=== PATIENT | female | born 1945 | race Caucasian/White ===

== ENCOUNTER → 2018-06-26 17:39 | Outpatient (CLI) | payer MEDICARE ==
[2012-01-13 10:23] VITALS: BMI 23.9
== END | disposition home or self-care (01) ==
LOC: D.LABREF 17:39
DX: M17.11 Unilateral primary osteoarthritis, right knee (principal); Z11.8 Encounter for screening for other infectious and parasitic diseases

== ENCOUNTER 2018-07-23 08:50 | Inpatient (IN) | payer MEDICARE ==
[~2018-07-23] VITALS: Ht 160 cm; Wt 60.0 kg
[2018-07-24] MEDS ORDERED: LISINOPRIL5 MG PO (16:55)
[2018-07-24] MEDS ORDERED: FEMARA2.5 MG PO (16:56)
[2018-07-24] MEDS ORDERED: COREG6.25 MG PO (16:56)
[2018-07-24] MEDS ORDERED: BUSPAR10 MG PO (16:56)
[2018-07-24] MEDS ORDERED: OMEPRAZOLE40 MG PO (16:57)
[2018-07-24] MEDS ORDERED: LIPITOR10 MG PO (16:57)
[2018-07-24] MEDS ORDERED: RESTORIL15 MG PO (16:57)
[2018-07-24] MEDS ORDERED: WELLBUTRIN XL150 M1 PO (16:58)
[2018-07-24] MEDS ORDERED: MOBIC7.5 MG PO (16:58)
[2018-07-24] MEDS ORDERED: CO Q-10200 MG PO (16:59)
[2018-07-24] MEDS ORDERED: ASPIRIN EC81 M1 PO (16:59)
[2018-07-24] MEDS ORDERED: FOLIC ACID0.8 MG PO (16:59)
[2018-07-24] MEDS ORDERED: FERROUS SULFAT325 MG PO (16:59)
[2018-07-24] MEDS ORDERED: MULTI-DAY VITAM1 TAB PO (16:59)
[2018-07-24] MEDS ORDERED: VITAMIN D3400 UNI1 PO (16:59)
[2018-07-24] MEDS ORDERED: DULCOLAX STOOL100 MG PO (17:00)
[2018-07-24] MEDS ORDERED: MIRALAX17 GM PO (17:01)
[2018-07-24] MEDS ORDERED: SUPER B COMPLEX PO (17:01)
[2018-07-24] MEDS ORDERED: FIBER GUMMIES PO (17:01)
[2018-07-24] MEDS ORDERED: CALCIUM CHEWS PO (17:01)
[2018-07-25 11:32] LABS: BASOPHILS 0.6 % (0-2); EOSINOPHILS 4.1 % (0-7); HEMATOCRIT 41.2 % (36.0-48.0); HEMOGLOBIN 13.6 g/dL (12-16); IMMATURE GRANULOCYTES 0.2 % (0-5); LYMPHOCYTES 27.6 % (15-50); MCH 31.4 pg (26.0-34.0); MCV 95.2 fL (80.0-100.0); MEAN PLATELET VOLUME 9.6 fL (7.4-10.4); MONOCYTES 6.8 % (2-11); NEUTROPHILS 60.7 % (40-80); PLATELET COUNT 199 10x3/uL (130-400); RBC 4.33 10x6/uL (4.00-5.40); WBC 4.7 10x3/uL (4.8-10.8)
[2018-07-25 11:38] LABS: APPEARANCE CLEAR (CLEAR); BILIRUBIN NEGATIVE (NEGATIVE); COLOR STRAW (YELLOW); EPITHELIAL CELLS OCC /hpf (0-5); GLUCOSE NEGATIVE (NEGATIVE); KETONE NEGATIVE (NEGATIVE); NITRITE NEGATIVE (NEGATIVE); PROTEIN NEGATIVE (NEGATIVE); RED CELLS - URINE NONE SEEN /hpf (0-5); SPECIFIC GRAVITY 1.015 (1.005-1.020); UROBILINOGEN NORMAL (NORMAL); WHITE CELLS - URINE RARE /hpf (0-5)
[2018-07-25 11:47] LABS: INR 0.96 (0.85-1.17); PROTIME 12.3 SECONDS (11.6-15.0)
[2018-07-25 11:49] LABS: CALC OSMOLALITY 278 mosm/kg (275-300); CALCIUM 8.8 mg/dL (8.5-10.1); CARBON DIOXIDE 24.7 mmol/L (21.0-32.0); CHLORIDE - SERUM 102 mmol/L (98-107); CREATININE - SERUM 0.8 mg/dL (0.6-1.3); GLUCOSE 93 mg/dL (74-106); SODIUM 138 mmol/L (136-145); UREA NITROGEN 20 mg/dL (7-18); eGFR NON AFRICAN AMERICAN 75 mL/min (90-120)
[2018-08-31 10:46] LABS: BASOPHILS 0.6 % (0-2); HEMATOCRIT 42.4 % (36.0-48.0); IMMATURE GRANULOCYTES 0.2 % (0-5); LYMPHOCYTES 22.3 % (15-50); MCH 31.3 pg (26.0-34.0); MCV 94.6 fL (80.0-100.0); MEAN PLATELET VOLUME 9.7 fL (7.4-10.4); MONOCYTES 6.3 % (2-11); NEUTROPHILS 68.6 % (40-80); PLATELET COUNT 198 10x3/uL (130-400); RBC 4.48 10x6/uL (4.00-5.40); RDW 13.2 % (11.5-14.5); WBC 5.1 10x3/uL (4.8-10.8)
[2018-08-31 10:59] LABS: APTT 24.8 SECONDS (22.8-39.4); INR 1.03 (0.85-1.17)
[2018-08-31 11:01] LABS: CALC OSMOLALITY 287 mosm/kg (275-300); CALCIUM 8.7 mg/dL (8.5-10.1); CARBON DIOXIDE 27.3 mmol/L (21.0-32.0); CHLORIDE - SERUM 107 mmol/L (98-107); CREATININE - SERUM 0.8 mg/dL (0.6-1.3); GLUCOSE 89 mg/dL (74-106); POTASSIUM - SERUM 3.8 mmol/L (3.5-5.1); SODIUM 144 mmol/L (136-145); UREA NITROGEN 19 mg/dL (7-18); eGFR NON AFRICAN AMERICAN 75 mL/min (90-120)
[2018-08-31 11:12] LABS: APPEARANCE HAZY (CLEAR); BILIRUBIN NEGATIVE (NEGATIVE); COLOR YELLOW (YELLOW); GLUCOSE NEGATIVE (NEGATIVE); KETONE NEGATIVE (NEGATIVE); NITRITE NEGATIVE (NEGATIVE); PROTEIN NEGATIVE (NEGATIVE); SPECIFIC GRAVITY 1.015 (1.005-1.020)
[2018-08-31 11:13] LABS: BACTERIA FEW /hpf (NONE SEEN); EPITHELIAL CELLS 0-5 /hpf (0-5); MUCUS <1+ /lpf (NONE SEEN); RED CELLS - URINE OCC /hpf (0-5)
[2018-09-04] MEDS ORDERED: GEMFIBROZIL600 MG (06:20)
[2018-09-04] MEDS ORDERED: NEO-BACIT-POLY3.5 GM (06:21)
[2018-09-04 06:32] VITALS: BMI 23.7
--- NOTE | 2018-09-04 08:40 | NUR ---
PLASMA BLADE SET 6/8 BOVIE PAD RIGHT FLANK [id number] EXP 04/11/2020
[2018-09-04 10:30] VITALS: BP 116/72
--- NOTE | 2018-09-04 10:46 | NUR ---
RECEIVED PT FROM CORRUGATOR MACHINE OPERATOR GEORGETTE, PT IS AWAKE AND ALERT, NO PAIN AT THIS TIME, ADVISED PT TO LET ME KNOW WHEN SHE STARTS TO FEEL UNCOMFORTABLE SO WE MAY GET AHEAD OF PAIN, SPOUSE AT BEDSIDE, NO NEEDS VOICED, CONTINUE WITH PLAN OF CARE
--- NOTE | 2018-09-04 10:56 | OP ---
PATIENT NAME: LINDA SEYMOUR MEDICAL RECORD: [id number] :49 LOCATION:D.[facility].2209 ADMISSION DATE:09/04/18 SURGEON: YAIR LEON DO DATE OF OPERATION: 09/04/2018 PROCEDURE PERFORMED: Right total knee arthroplasty. PREOPERATIVE DIAGNOSIS: Right knee osteoarthritis. POSTOPERATIVE DIAGNOSIS: Right knee osteoarthritis. INDICATIONS: Ms. Seymour is a 73-year-old female who has had right knee pain for quite some time. She has undergone injections and all manner of nonoperative treatment for the right knee osteoarthritis that has begun to affect her activities of daily living and is quite painful for her. She is ready to have something done. She said she is tired of it affecting her activities of daily living. She is aware of the risks and benefits of the procedure including infection, bleeding, fracture, damage to nerves and vessels, need for further surgery, and she signed the consent. SURGEON: Yair Leon DO DESCRIPTION OF PROCEDURE: The patient was taken to the operative suite and laid in the supine position after getting a block by anesthesia in preoperative area. She was given 80 mg gentamicin, 2 grams Ancef preoperatively. The right lower extremity was then prepped and draped in sterile fashion. She was not given TXA due to her factor V Leiden deficiency. Once timeout was performed, the incision began over the anterior knee in the midline as the knee had been wrapped in Ioban and careful dissection was made down to the capsule. A fresh 10-blade was then used to do the medial parapatellar approach. The patella was then everted and milled down and the retractors were put in the femur, it was flexed up and the femur. A canal was opened with a drill. This was irrigated out and then the distal femur was cut. This was removed and the proximal tibia was cut. This was then removed as well and the knee was brought into extension and a lamina belt machine operator was used to open up the medial and lateral side and the menisci were removed and any bleeders were coagulated with the Aquamantys at that time. The extension block was then put in and fit very well. The knee was then flexed up. The pins were removed off the tibia and measured to be a 62.5 femur. The 4-in-1 cutting block was put into place. Alfredito wing was placed to ensure there was no notching and then the femur was cut with the 4 cuts. The bone was removed. The guide was removed and then the trial was placed and tray on the tibia and was floated in, ranged 4 times and then the rotation was checked. Once the rotation was marked, this was removed. The patella was drilled and the lug holes were drilled for the femur. The femur trial was removed and then the tibia was exposed and sized to be 67. This was drilled and punched and then the cement was mixed. Cement was placed on the implant and into the tibia. Once the cement was in the tibia and on the implant, this was impacted into place. Excess cement was removed from the tibia, the femur was then press fit, a 10 poly was put in between them, brought into extension and cement was placed in the patellar holes after they were irrigated and curetted on the patella and this was squeezed and held into place while the cement dried. While this was drying and this was held, the knee was in extension and the knee was thoroughly irrigated. We then trialed. The tendon was in there, it fit very well. Good medial and lateral stability in extension and flexion. A 10 E-poly anterior stabilized poly was put in. This fit very well and then locking mechanism was OPERATIVE REPORT [id number] LINDA SEYMOUR placed in the tibia. The knee was then irrigated one more time and Surgicel beads were placed in the gutters as well as antibiotic powder of vancomycin, tobramycin and the capsule was then closed with 2-0 Ethibond in bayysm-om-obinp fashion. A #2 Ethibond was used to close the capsule and then 2-0 Vicryl was used to close the skin in inverted interrupted fashion. A Zipline was placed on the knee. Adaptic, 4 x 4s, ABD, Webril, Kit wrap was placed on the knee and a JOSE MANUEL hose stockinette was placed up to the knee. The patient was awakened and taken to recovery in stable condition. Blood loss approximately 100 mL. The tourniquet was up during the procedure to 350 mmHg and was up for approximately 60 minutes. It was let down at the end of the procedure. I was assisted by Carmine Harris, nurse practitioner. He assisted in closing and holding retractors, it could not have been performed without his assistance. Pulses were palpable following the procedure. TRANSINT:[id number] Voice Confirmation ID: [id number] DOCUMENT ID: [id number] YAIR LEON DO at 1056 CC: [id number] DICTATION DATE: 09/04/18944 RECEIVING DISTRIBUTION STATION OPERATOR: 09/04/18 1005 ADM IN [place] [id number] [place] [id number]
[2018-09-04 12:21] VITALS: BP 109/67
[2018-09-04] MEDS ORDERED: ELIQUIS2.5 MG PO (13:02)
[2018-09-04] MEDS ORDERED: KEFLEX500 MG PO (13:03)
[2018-09-04] MEDS ORDERED: OXYCODONE HCL5 M1 PO (13:03)
[2018-09-04] MEDS ORDERED: VISTARIL50 MG PO (13:03)
[2018-09-04 13:20] VITALS: BP 116/72; Ht 160 cm; Wt 60.0 kg
[2018-09-04 16:30] VITALS: BP 105/63
--- NOTE | 2018-09-04 20:45 | NUR ---
AWAKE,ALERT.NO COMPLAITNS VOICED AT THIS TIME. IV TO RFA WITHOUT REDNESS OR EDEMA NOTED. DRESSING TO RIGHT KNEE INTACT WITHOUT DRAINAGE. CPM IN PROGRESS AT THIS TIME. TOLERATING WELL. CL IN REACH
[2018-09-04 21:05] VITALS: BP 106/67
--- NOTE | 2018-09-05 02:51 | NUR ---
I have reviewed this patient and I concur with the Shift Assessment completed by the Licensed Practical Nurse today this shift.
--- NOTE | 2018-09-05 04:07 | NUR ---
I have reviewed this patient and I concur with the Shift Assessment completed by the Licensed Practical Nurse today this shift.
[2018-09-05 04:43] VITALS: BP 124/68
[2018-09-05 05:04] LABS: BASOPHILS 0.3 % (0-2); EOSINOPHILS 0.5 % (0-7); HEMATOCRIT 36.3 % (36.0-48.0); HEMOGLOBIN 11.7 g/dL (12-16); LYMPHOCYTES 10.4 % (15-50); MCH 30.5 pg (26.0-34.0); MCHC 32.2 g/dL (31.0-37.0); MCV 94.5 fL (80.0-100.0); MEAN PLATELET VOLUME 9.9 fL (7.4-10.4); MONOCYTES 7.3 % (2-11); NEUTROPHILS 81.5 % (40-80); PLATELET COUNT 171 10x3/uL (130-400); RBC 3.84 10x6/uL (4.00-5.40); RDW 13.2 % (11.5-14.5); WBC 6.1 10x3/uL (4.8-10.8)
[2018-09-05 05:55] LABS: ALBUMIN 3.1 g/dL (3.4-5.0); ANION GAP 14.1 mmol/L (8-16); BILIRUBIN - TOTAL 0.45 mg/dL (0.2-1.3); CALCIUM 7.6 mg/dL (8.5-10.1); CARBON DIOXIDE 24.5 mmol/L (21.0-32.0); CREATININE - SERUM 0.9 mg/dL (0.6-1.3); MAGNESIUM - SERUM 1.5 mg/dL (1.8-2.4); POTASSIUM - SERUM 3.6 mmol/L (3.5-5.1); PROTEIN - SERUM 5.6 g/dL (6.4-8.2)
--- NOTE | 2018-09-05 07:51 | NUR ---
PT STATES UNCONTROLLED PAIN. PRAMOD WATSON HERE AND ASSESSED PT. INSTRUCTED TO GIVE OXYCODONE IR 10 MG EARLY. PT REMAINS IN CPM MACHINE. CALL LIGHT IN REACH
[2018-09-05 08:47] VITALS: BP 154/82
--- NOTE | 2018-09-05 11:27 | MORECARE ---
CASE MANAGEMENT DISCHARGE SUMMARY PATIENT: LINDA SEYMOUR LOU UNIT: [id number] ADM DATE: 09/04/18 AGE: 73 : 47 SEX: F ROOM/BED: D.2209 AUTHOR: EFRAIN BORJAS PHYSICIAN: REFERRING PHYSICIAN: KARINA LEON DO DATE OF SERVICE: 09/05/18 Discharge Plan Patient Name: LINDA SEYMOUR Facility: [facility]:[place] : 1945 Planned Disposition: Home Anticipated Discharge Date: Discharge Date: Expected LOS: Initial Reviewer: [email or web address] Initial Review Date: 09/04/2018 Generated: 09/05/18 12:26 pm Patient Name: LINDA SEYMOUR Page [phone] at 1127 All edits/amendments must be made on the electronic document DICTATION DATE: 09/05/18 1126 IT LEAD: THAI 09/05/18 1126 RPT#: [id number] DC DATE: STATUS: ADM IN [facility] [address] [place] [address] END OF REPORT
--- NOTE | 2018-09-05 11:42 | MORECARE ---
CASE MANAGEMENT DISCHARGE SUMMARY PATIENT: LINDA SEYMOUR LOU UNIT: [id number] ADM DATE: 09/04/18 AGE: 73 : 47 SEX: F ROOM/BED: D.9461 AUTHOR: SUADDOC PHYSICIAN: REFERRING PHYSICIAN: KARINA LEON DO DATE OF SERVICE: 09/05/18 Discharge Plan Patient Name: LINDA SEYMOUR Facility: [facility]:[place] : 1945 Planned Disposition: Home Anticipated Discharge Date: Discharge Date: Expected LOS: Initial Reviewer: [email or web address] Initial Review Date: 09/04/2018 Generated: 09/05/18 12:42 pm Comments DCP- Discharge Planning Updated by [email or web address]: Ivon Izaguirre on 09/05/18 10:[address] Patient Name: LINDA SEYMOUR Admission Status: Elective Accout number: [id number] Admission Date: 09-04-2018 : 1945 Admission Diagnosis: Attending: KARINA LEON Current LOS: 1 Anticipated DC Date: Planned Disposition: Home Primary Insurance: [facility] MEDICARE SOLUTIONS Discharge Planning Comments: CM met with patient to complete initial dc planning assessment. CM educated patient on the CM role and verbal consent given by patient to complete assessment. Patient lives at home with her where she was independent with her care prior to surgery. At discharge patient plans to return home and feels this is a safe discharge. CM discussed availability of home health, rehab services, and medical equipment. Patient has already received her walker, CPM, ice machine, and BSC. It was set up prior to surgery from Dr Leon's office. She does not have any steps to enter her home, but there are 9 steps downstairs, but she does not need to go down stairs per her . Her stated that they have not made their mind up to where she will be doing her OP PT, but thought about using [facility] on [address] [facility], but they will let me know for sure. Patient denied known discharge needs at this time. CM will continue to follow and will assist as needed with dc plans/needs. Track Superintendent: Ivon Izaguirre DCPIA - Discharge Planning Initial Assessment Updated by [email or web address]: Ivon Izaguirre on 09/05/18 11:27 am * Is the patient Alert and Oriented? Yes * How many steps to enter\exit or inside your home? 09 * PCP Magdiel * Pharmacy [facility] [address] * Preadmission Environment Home with Family * ADLs Independent * Equipment Bedside Commode CPAP Rolling Walker Shower Chair Walker * Other Equipment CPM ICE MACHINE * List name and contact numbers for known caregivers / representatives who currently or will assist patient after discharge: ROM [phone] * Verbal permission to speak to the caregivers and representatives has been obtained from the patient. Yes * Community resources currently utilized None * Additional services required to return to the preadmission environment? Yes * Can the patient safely return to the preadmission environment? Yes * Has this patient been hospitalized within the prior 30 days at any hospital? No Last DP export: 09/05/18 10:27 a Patient Name: LINDA SEYMOUR Page [phone] at 1142 All edits/amendments must be made on the electronic document DICTATION DATE: 09/05/18 1142 TEACHER OF THE HANDICAPPED: THAI 09/05/18 1142 RPT#: [id number] DC DATE: STATUS: ADM IN [facility] [address] [place] [address] END OF REPORT
[2018-09-05 12:49] VITALS: BP 127/79
--- NOTE | 2018-09-05 13:41 | NUR ---
PATIENT RESTING ON BACK WITH EYES CLOSED. NO NEEDS AT THIS TIME
[2018-09-05 16:48] VITALS: BP 147/78
--- NOTE | 2018-09-05 20:54 | NUR ---
LEVY MONROE.NO DISTESS NOTED. STATING PAIN 12/26. OXY IR 10 MG GIVEN PO WITH TORADOL 15 MG GIVEN IV PER ORDERS.STATES PAIN HAS BEEN REALLY BAD. DENIZ WRAP DRESSING INTACT TO RLE WITHOUT DRAINAGE NOTED. CPM IN PROGRESS AT THIS TIME. CL IN REACH
[2018-09-05 21:03] VITALS: BP 165/79
[2018-09-06 00:10] VITALS: BP 174/80
[2018-09-06 04:45] VITALS: BP 154/60
--- NOTE | 2018-09-06 04:49 | NUR ---
PT IN BED IN LOW FOWLERS POSITION. REPIRATIONS EVEN AND UNLABORED. VITAL SIGNS STABLE AND AFEBRILE. NO VISUAL CUES OF DISTRESS NOTED. DENIES ANY OTHER NEEDS AT THIS TIME. BED LOW, SIDE RAILS UP X2. CALL LIGHT IN REACH. WILL CONTINUE TO MONITOR.
[2018-09-06 06:02] LABS: BASOPHILS 0.4 % (0-2); EOSINOPHILS 2.7 % (0-7); HEMATOCRIT 33.2 % (36.0-48.0); HEMOGLOBIN 10.9 g/dL (12-16); IMMATURE GRANULOCYTES 0.2 % (0-5); LYMPHOCYTES 21.7 % (15-50); MCH 30.8 pg (26.0-34.0); MCHC 32.8 g/dL (31.0-37.0); MCV 93.8 fL (80.0-100.0); MEAN PLATELET VOLUME 9.8 fL (7.4-10.4); MONOCYTES 10.9 % (2-11); NEUTROPHILS 64.1 % (40-80); PLATELET COUNT 158 10x3/uL (130-400); RBC 3.54 10x6/uL (4.00-5.40); WBC 5.6 10x3/uL (4.8-10.8)
[2018-09-06 06:32] LABS: ALBUMIN 2.7 g/dL (3.4-5.0); BILIRUBIN - TOTAL 0.53 mg/dL (0.2-1.3); CALCIUM 7.9 mg/dL (8.5-10.1); CARBON DIOXIDE 25.1 mmol/L (21.0-32.0); MAGNESIUM - SERUM 1.8 mg/dL (1.8-2.4); POTASSIUM - SERUM 3.1 mmol/L (3.5-5.1); PROTEIN - SERUM 5.7 g/dL (6.4-8.2)
[2018-09-06 10:08] VITALS: BP 110/65
[2018-09-06 13:37] VITALS: BP 99/55
[2018-09-06 17:26] VITALS: BP 112/67
--- NOTE | 2018-09-06 19:45 | NUR ---
CPM IN USE, PT SET ON BEDPAN. VOIDED CLEAR YELLOW URINE. NO OTHER NEEDS AT THIS TIME.
[2018-09-06 20:37] VITALS: BP 126/69
--- NOTE | 2018-09-07 04:53 | NUR ---
I have reviewed this patient and I concur with the Shift Assessment completed by the Licensed Practical Nurse today this shift.
[2018-09-07 05:31] LABS: BASOPHILS 0.2 % (0-2); EOSINOPHILS 1.9 % (0-7); HEMATOCRIT 32.5 % (36.0-48.0); HEMOGLOBIN 10.7 g/dL (12-16); IMMATURE GRANULOCYTES 0.2 % (0-5); MCH 30.9 pg (26.0-34.0); MCHC 32.9 g/dL (31.0-37.0); MCV 93.9 fL (80.0-100.0); MEAN PLATELET VOLUME 9.9 fL (7.4-10.4); MONOCYTES 9.8 % (2-11); NEUTROPHILS 73.9 % (40-80); PLATELET COUNT 152 10x3/uL (130-400); RBC 3.46 10x6/uL (4.00-5.40); RDW 13.1 % (11.5-14.5); WBC 5.3 10x3/uL (4.8-10.8)
[2018-09-07 05:33] VITALS: BP 109/61
[2018-09-07 05:47] LABS: ALBUMIN 2.6 g/dL (3.4-5.0); ANION GAP 14.2 mmol/L (8-16); BILIRUBIN - TOTAL 0.34 mg/dL (0.2-1.3); CALCIUM 8.3 mg/dL (8.5-10.1); CARBON DIOXIDE 21.6 mmol/L (21.0-32.0); CREATININE - SERUM 0.9 mg/dL (0.6-1.3); MAGNESIUM - SERUM 1.9 mg/dL (1.8-2.4); POTASSIUM - SERUM 3.8 mmol/L (3.5-5.1); PROTEIN - SERUM 5.8 g/dL (6.4-8.2)
--- NOTE | 2018-09-07 07:44 | NUR ---
PT RESTING IN BED ON CPM. AROUSED BY VERBAL STIMULI. CO OF PAIN OF "5". NO S/S OF ACUTE DISTRESS. CL IN PLACE.
[2018-09-07 08:54] VITALS: BP 120/67
--- NOTE | 2018-09-07 09:46 | MORECARE ---
CASE MANAGEMENT DISCHARGE SUMMARY PATIENT: LINDA SEYMOUR LOU UNIT: [id number] ADM DATE: 09/04/18 AGE: 73 : 47 SEX: F ROOM/BED: D.3059 AUTHOR: SUAD,DOC PHYSICIAN: REFERRING PHYSICIAN: KARINA LEON DO DATE OF SERVICE: 09/07/18 Discharge Plan Patient Name: LINDA SEYMOUR Facility: [facility]:[place] : 1945 Planned Disposition: Home Anticipated Discharge Date: Discharge Date: Expected LOS: Initial Reviewer: [email or web address] Initial Review Date: 09/04/2018 Generated: 09/07/18 10:46 am Comments DCP- Discharge Planning Updated by [email or web address]: Ivon Izaguirre on 09/07/18 8:[address] PATIENT IS DISCHARGING HOME TODAY, OP PT SET UP FOR MondayAugust AT 3:00 WITH [facility] I SPOKE WITH CHARISSE MOYER AND SIGNED. COPY OF OP PT ORDER WILL BE GIVEN TO THE PATIENT IN HER DC PACKET AND IS WAS ALSO FAXED TO [facility]. CM WILL CONTINUE TO FOLLOW AND ASSIST WITH DC PLANNING NEEDED DCP- Discharge Planning Updated by [email or web address]: Ivon Izaguirre on 09/05/18 10:[address] Patient Name: LINDA SEYMOUR Admission Status: Elective Accout number: [id number] Admission Date: 09-04-2018 : 1945 Admission Diagnosis: Attending: KARINA LEON Current LOS: 1 Anticipated DC Date: Planned Disposition: Home Primary Insurance: [facility] MEDICARE SOLUTIONS Discharge Planning Comments: CM met with patient to complete initial dc planning assessment. CM educated patient on the CM role and verbal consent given by patient to complete assessment. Patient lives at home with her where she was independent with her care prior to surgery. At discharge patient plans to return home and feels this is a safe discharge. CM discussed availability of home health, rehab services, and medical equipment. Patient has already received her walker, CPM, ice machine, and BSC. It was set up prior to surgery from Dr Leon's office. She does not have any steps to enter her home, but there are 9 steps downstairs, but she does not need to go down stairs per her . Her stated that they have not made their mind up to where she will be doing her OP PT, but thought about using [facility] on [address] [facility], but they will let me know for sure. Patient denied known discharge needs at this time. CM will continue to follow and will assist as needed with dc plans/needs. Rn Telehealth: Ivon Izaguirre DCPIA - Discharge Planning Initial Assessment Updated by [id number]: Ivon Izaguirre on 09/05/18 11:27 am * Is the patient Alert and Oriented? Yes * How many steps to enter\exit or inside your home? 0/9 * PCP Veloz * Pharmacy [facility] [address] * Preadmission Environment Home with Family * ADLs Independent * Equipment Bedside Commode CPAP Rolling Walker Shower Chair Walker * Other Equipment CPM ICE MACHINE * List name and contact numbers for known caregivers / representatives who currently or will assist patient after discharge: ROM [phone] * Verbal permission to speak to the caregivers and representatives has been obtained from the patient. Yes * Community resources currently utilized None * Additional services required to return to the preadmission environment? Yes * Can the patient safely return to the preadmission environment? Yes * Has this patient been hospitalized within the prior 30 days at any hospital? No Coverage Notice Reviewer: [id number] - Ivon Izaguirre Notice Issued Date-Time: 09/07/2018 9:00 Notice Type: IM Discharge Notice Notice Delivered To: Patient Relationship to Patient: Copy Preparer Name: Delivery Method: HAND - Hand Delivered Evelyn Days: Prior Verbal Notification: Recipient Understood Notice: Yes Recipient Signature: Yes Med Rec Note Co-signed by Attending: Coverage Notice Comment: Last DP export: 09/05/18 10:42 a Patient Name: LINDA SEYMOUR Page 31648 at 0946 All edits/amendments must be made on the electronic document DICTATION DATE: 09/07/18945 FURNACE COMBUSTION ANALYST: THAI 09/07/18945 RPT#: [id number] DC DATE: STATUS: ADM IN [facility] [address] [place] [address] END OF REPORT
--- NOTE | 2018-09-07 11:15 | NUR ---
DRESSING CHANGE DONE TO R KNEE. CLEAR ZIPPER LEFT IN PLACE. DC IV WITH TIP IN TACT. DC INSTRUCTIONS AND EDUCATION DONE WITH PT, AND DAUGHTER. ALL OF BELONGINGS SENT DOWN WITH PT. SCRIPTS SENT DOWN WITH PT. SPOKE WITH PRAMOD PER PT REQUEST FOR ZOFRAN DT NAUSEA FROM PAIN MEDS. NO S/S OF ACUTE DISTRESS. TAKEN DOWN VIA WC WITH VOLUNTEER AND FAMILY AT SIDE.
--- NOTE | 2018-09-07 16:42 | MORECARE ---
CASE MANAGEMENT DISCHARGE SUMMARY PATIENT: LINDA SEYMOUR LOU UNIT: [id number] ADM DATE: 09/04/18 AGE: 73 : 47 SEX: F ROOM/BED: D.6436 AUTHOR: SUAD,DOC PHYSICIAN: REFERRING PHYSICIAN: KARINA LEON DO DATE OF SERVICE: 09/07/18 Discharge Plan Patient Name: LINDA SEYMOUR Facility: [facility]:[place] : 1945 Planned Disposition: Home Anticipated Discharge Date: Discharge Date: 09/07/2018 Expected LOS: 0 Initial Reviewer: [email or web address] Initial Review Date: 09/04/2018 Generated: 09/07/18 5:42 pm Comments DCP- Discharge Planning Updated by [email or web address]: Ivon Izaguirre on 09/07/18 8:[address] PATIENT IS DISCHARGING HOME TODAY, OP PT SET UP FOR MondayAugust AT 3:00 WITH [facility] I SPOKE WITH CHARISSE MOYER AND SIGNED. COPY OF OP PT ORDER WILL BE GIVEN TO THE PATIENT IN HER DC PACKET AND IS WAS ALSO FAXED TO [facility]. CM WILL CONTINUE TO FOLLOW AND ASSIST WITH DC PLANNING NEEDED DCP- Discharge Planning Updated by [id number]: Ivon Izaguirre on 09/05/18 10:[address] Patient Name: LINDA SEYMOUR Admission Status: Elective Accout number: [id number] Admission Date: 09-04-2018 : 1945 Admission Diagnosis: Attending: KARINA LEON Current LOS: 1 Anticipated DC Date: Planned Disposition: Home Primary Insurance: [facility] MEDICARE SOLUTIONS Discharge Planning Comments: CM met with patient to complete initial dc planning assessment. CM educated patient on the CM role and verbal consent given by patient to complete assessment. Patient lives at home with her where she was independent with her care prior to surgery. At discharge patient plans to return home and feels this is a safe discharge. CM discussed availability of home health, rehab services, and medical equipment. Patient has already received her walker, CPM, ice machine, and BSC. It was set up prior to surgery from Dr Leon's office. She does not have any steps to enter her home, but there are 9 steps downstairs, but she does not need to go down stairs per her . Her stated that they have not made their mind up to where she will be doing her OP PT, but thought about using [facility] on [address] [facility], but they will let me know for sure. Patient denied known discharge needs at this time. CM will continue to follow and will assist as needed with dc plans/needs. It Communications Specialist: Ivon Izaguirre DCPIA - Discharge Planning Initial Assessment Updated by [email or web address]: Ivon Izaguirre on 09/05/18 11:27 am * Is the patient Alert and Oriented? Yes * How many steps to enter\exit or inside your home? 09 * PCP Veloz * Pharmacy [facility] [address] * Preadmission Environment Home with Family * ADLs Independent * Equipment Bedside Commode CPAP Rolling Walker Shower Chair Walker * Other Equipment CPM ICE MACHINE * List name and contact numbers for known caregivers / representatives who currently or will assist patient after discharge: ROM [phone] * Verbal permission to speak to the caregivers and representatives has been obtained from the patient. Yes * Community resources currently utilized None * Additional services required to return to the preadmission environment? Yes * Can the patient safely return to the preadmission environment? Yes * Has this patient been hospitalized within the prior 30 days at any hospital? No Coverage Notice Reviewer: [id number] - Ivon Izaguirre Notice Issued Date-Time: 09/07/2018 9:00 Notice Type: IM Discharge Notice Notice Delivered To: Patient Relationship to Patient: Armorer Technician Name: Delivery Method: HAND - Hand Delivered Evelyn Days: Prior Verbal Notification: Recipient Understood Notice: Yes Recipient Signature: Yes Med Rec Note Co-signed by Attending: Coverage Notice Comment: Last DP export: 09/07/18 8:46 a Patient Name: LINDA SEYMOUR Page 58057 at 1642 All edits/amendments must be made on the electronic document DICTATION DATE: 09/07/181640 DRILL BIT SHARPENER: THAI 09/07/181640 RPT#: [id number] DC DATE:09/07/18 STATUS: DIS IN [facility] [address] [place] [address] END OF REPORT
== END 2018-09-07 11:52 | disposition home or self-care (01) | DRG 470 ==
LOC: D.SDCHOLD 07-31 10:00 → D.MS 09-04 10:14
PROVIDERS: Emergency Medicine; ADMIT Orthopaedic Surgery; ATTEND Orthopaedic Surgery
PROC: 0SRC0J9 Replacement of Right Knee Joint with Synthetic Substitute, Cemented, Open Approach (ICD-10-PCS; principal; 2018-09-04 07:30)
DX: M17.11 Unilateral primary osteoarthritis, right knee (principal); D68.51 Activated protein C resistance; D62 Acute posthemorrhagic anemia; I10 Essential (primary) hypertension; K21.9 Gastro-esophageal reflux disease without esophagitis; F32.9 Major depressive disorder, single episode, unspecified; F41.9 Anxiety disorder, unspecified

== ENCOUNTER 2018-11-23 09:00 | Outpatient (CLI) | payer MEDICARE ==
[2018-09-04 13:20] VITALS: BMI 23.4
[~2018-11-23 09:00] MED LIST: ASPIRIN EC81 M1 PO; BUSPAR10 MG PO; CALCIUM CHEWS PO; CO Q-10200 MG PO; COREG6.25 MG PO; DULCOLAX STOOL100 MG PO; ELIQUIS2.5 MG PO; FEMARA2.5 MG PO; FERROUS SULFAT325 MG PO; FIBER GUMMIES PO; FOLIC ACID0.8 MG PO; GEMFIBROZIL600 MG; KEFLEX500 MG PO; LIPITOR10 MG PO; LISINOPRIL5 MG PO; MIRALAX17 GM PO; MOBIC7.5 MG PO; MULTI-DAY VITAM1 TAB PO; NEO-BACIT-POLY3.5 GM; OMEPRAZOLE40 MG PO; OXYCODONE HCL5 M1 PO; RESTORIL15 MG PO; SUPER B COMPLEX PO; VISTARIL50 MG PO; VITAMIN D3400 UNI1 PO; WELLBUTRIN XL150 M1 PO
== END 2018-11-23 10:00 | disposition home or self-care (01) ==
LOC: D.MAMMO 09:00
PROVIDERS: ATTEND Clinical Nurse Specialist Family Health
DX: Z85.3 Personal history of malignant neoplasm of breast (principal)

== ENCOUNTER → 2019-12-18 20:34 | Outpatient (CLI) | payer MEDICARE ==
[2018-09-04 13:20] VITALS: BMI 23.4
== END | disposition home or self-care (01) ==
LOC: D.MAMMO 11:00
PROVIDERS: ATTEND Family Medicine
DX: Z85.3 Personal history of malignant neoplasm of breast (principal)

== ENCOUNTER → 2020-08-25 10:34 | Outpatient (CLI) | payer MEDICARE ==
[2018-09-04 13:20] VITALS: BMI 23.4
== END | disposition home or self-care (01) ==
LOC: D.LAB 10:34
PROVIDERS: ATTEND Family Medicine
DX: R19.7 Diarrhea, unspecified (principal)

== ENCOUNTER 2020-09-19 15:21 | Inpatient (IN) | payer MEDICARE ==
[~2020-09-19] VITALS: Ht 160 cm; Wt 56.2 kg
[2020-09-19 15:46] LABS: BASOPHILS 0.1 % (0-2); EOSINOPHILS 0 % (0-7); HEMATOCRIT 38.6 % (36.0-48.0); HEMOGLOBIN 12.4 g/dL (12-16); IMMATURE GRANULOCYTES 0.3 % (0-5); LYMPHOCYTE ABS# 0.84 10x3/uL (1.18-3.74); LYMPHOCYTES 5.7 % (15-50); MCH 30.9 pg (26.0-34.0); MCHC 32.1 g/dL (31.0-37.0); MCV 96.3 fL (80.0-100.0); MEAN PLATELET VOLUME 9.9 fL (7.4-10.4); MONOCYTES 5.4 % (2-11); NEUTROPHIL ABS# 13.05 10x3/uL (1.56-6.13); NEUTROPHILS 88.5 % (40-80); PLATELET COUNT 182 10x3/uL (130-400); RBC 4.01 10x6/uL (4.00-5.40); RDW 12.8 % (11.5-14.5); WBC 14.8 10x3/uL (4.8-10.8)
[2020-09-19 15:51] LABS: BILIRUBIN 2+ (NEGATIVE); KETONE LARGE mg/dL (NEGATIVE); NITRITE NEGATIVE (NEGATIVE); UROBILINOGEN NORMAL mg/dL (< 2)
[2020-09-19 15:52] LABS: BACTERIA MODERATE HPF (NONE SEEN); SQUAMOUS EPITHELIAL 0-5 HPF (0-4); WHITE CELLS - URINE 0-5 HPF (0-4)
[2020-09-19 15:56] LABS: CALC OSMOLALITY 265 mosm/kg (275-300); CALCIUM 8.7 mg/dL (8.5-10.1); CARBON DIOXIDE 23.8 mmol/L (21.0-32.0); CHLORIDE - SERUM 97 mmol/L (98-107); CREATININE - SERUM 0.8 mg/dL (0.6-1.3); GLUCOSE 109 mg/dL (74-106); POTASSIUM - SERUM 3.5 mmol/L (3.5-5.1); SODIUM 133 mmol/L (136-145); UREA NITROGEN 10 mg/dL (7-18); eGFR NON AFRICAN AMERICAN 74 mL/min (90-120)
[2020-09-19 16:04] LABS: ALBUMIN 3.3 g/dL (3.4-5.0); ALKALINE PHOSPHATASE 41 U/L (30-120); ALT (SGPT) 18 U/L (10-68); AMYLASE - SERUM 28 U/L (25-115); BILIRUBIN - TOTAL 0.58 mg/dL (0.2-1.3); LIPASE 59 U/L (73-393); PROTEIN - SERUM 7.4 g/dL (6.4-8.2)
[2020-09-19 16:06] LABS: TROPONIN-I < 0.017 ng/mL (0.000-0.060)
--- NOTE | 2020-09-19 16:13 | NUR ---
PT STILL C/O PAIN, WILL CONT. TO MONITOR. NS BOLUS INFUSING.
[2020-09-19 20:54] VITALS: BP 147/74
[2020-09-19 23:24] VITALS: BMI 22.0
[2020-09-20] VITALS (8 sets, daily range): BP systolic 77–146; BP diastolic 43–64
--- NOTE | 2020-09-20 03:00 | NUR ---
I have reviewed this patient and I concur with the Shift Assessment completed by the Licensed Practical Nurse today this shift.
[2020-09-20 06:00] LABS: BASOPHILS 0.1 % (0-2); EOSINOPHILS 0 % (0-7); HEMATOCRIT 34.6 % (36.0-48.0); IMMATURE GRANULOCYTES 0.4 % (0-5); LYMPHOCYTES 7.2 % (15-50); MCH 30.6 pg (26.0-34.0); MCHC 31.8 g/dL (31.0-37.0); MCV 96.1 fL (80.0-100.0); MEAN PLATELET VOLUME 10.2 fL (7.4-10.4); MONOCYTES 4.3 % (2-11); NEUTROPHIL ABS# 7.32 10x3/uL (1.56-6.13); PLATELET COUNT 180 10x3/uL (130-400); RDW 12.9 % (11.5-14.5)
[2020-09-20 06:03] LABS: WBC 8.3 10x3/uL (4.8-10.8)
[2020-09-20 06:22] LABS: ALBUMIN 2.5 g/dL (3.4-5.0); ANION GAP 15.6 mmol/L (8-16); BILIRUBIN - TOTAL 0.63 mg/dL (0.2-1.3); CALCIUM 7.6 mg/dL (8.5-10.1); CARBON DIOXIDE 19.6 mmol/L (21.0-32.0); MAGNESIUM - SERUM 1.3 mg/dL (1.8-2.4); POTASSIUM - SERUM 3.2 mmol/L (3.5-5.1); PROTEIN - SERUM 5.9 g/dL (6.4-8.2)
[2020-09-20 06:25] LABS: CREATININE - SERUM 1.3 mg/dL (0.6-1.3)
--- NOTE | 2020-09-20 08:28 | NUR ---
NOTED PT LAST TWO BP TO BE LOW, SPOKE WITH PT ABOUT NOT USING THAI MASSEUR UNLESS ABSOLUTLY NECESSARY D/T HER BP BEING SO LOW, ENC PO INTAKE, CONT TO MONITOR
--- NOTE | 2020-09-20 08:31 | NUR ---
RESTING IN BED, NO DISTRESS NOTED, CONT TO MONITOR VITALS AND PAIN, INTERACTIVE WEB DEVELOPER IN PLACE,
[2020-09-20] MEDS ORDERED: TAMOXIFEN CITRA20 MG PO (09:49)
[2020-09-20] MEDS ORDERED: DONEPEZIL HCL5 MG PO (09:50)
--- NOTE | 2020-09-20 09:55 | NUR ---
FLUID BOLUS STARTED
[2020-09-20 13:15] LABS: APTT 29.3 SECONDS (22.8-39.4); INR 1.57 (0.85-1.17); PROTIME 17.4 SECONDS (11.6-15.0)
[2020-09-20 13:26] LABS: C-REACTIVE PROTEIN 59.7 mg/dL (0.0-0.9)
[2020-09-20 14:31] LABS: ERYTHROCYTE SEDIMENTATION RATE 32 mm/hr (0-30)
--- NOTE | 2020-09-20 17:10 | NUR ---
spoke with delaney moss concerning pt bp, will cont to monitor and if mean bp falls below 60 call for further orders
--- NOTE | 2020-09-20 19:00 | NUR ---
BEDSIDE REPORT RECEIVED AND CARE OF PT ASSUMED. PT LYING IN LOW MIX'S POSITION VISITING WITH SPOUSE. IV TO RIGHT AC PATENT WITH NS INFUSING AT 125 ML/HR. CARDIAC CATHETERIZATION TECHNICIAN IN USE FOR PAIN CONTROL WITH MORPHINE SET AT 06/28/09. ZOFRAN INFUSING AT 4.7 ML/HR. MADRIGAL CATHETER DRAINING TO GRAVITY WITH YELLOW URINE IN COLLECTION BAG. SCD'S IN USE ON BLE. WILL MONITOR FOR NEEDS.
--- NOTE | 2020-09-20 19:11 | NUR ---
spoke to nurse Marybel @ 12:15pm , she asked when this procedure can be done, he said Monday AM is fine.
--- NOTE | 2020-09-20 19:40 | NUR ---
REPLACED VIAL OF MORPHINE IN [address]HWAY TRAFFIC CONTROL TECHNICIAN. HS MEDICATIONS GIVEN.
--- NOTE | 2020-09-20 20:00 | NUR ---
GAVE POTASSIUM PO MIXED WITH LEMON CHICKALOON SODA FOR REPLENISHMENT PER THE ELECTROLYTE PROTOCOL.
--- NOTE | 2020-09-20 20:37 | NUR ---
PT C/O EXCESSIVE BELCHING CAUSING PAIN. CALLED NED[facility] MCDONALD [facility] AND RECEIVED ORDER FOR X1 DOSE OF MYLANTA 30 CC. WILL MONITOR FOR EFFECTIVENESS.
[2020-09-21 05:02] LABS: BASOPHILS 0.1 % (0-2); EOSINOPHILS 0.1 % (0-7); HEMATOCRIT 29.8 % (36.0-48.0); HEMOGLOBIN 9.5 g/dL (12-16); IMMATURE GRANULOCYTES 0.3 % (0-5); LYMPHOCYTE ABS# 0.67 10x3/uL (1.18-3.74); MCH 30.4 pg (26.0-34.0); MCHC 31.9 g/dL (31.0-37.0); MCV 95.5 fL (80.0-100.0); MONOCYTES 3.9 % (2-11); NEUTROPHIL ABS# 5.74 10x3/uL (1.56-6.13); NEUTROPHILS 85.6 % (40-80); PLATELET COUNT 170 10x3/uL (130-400); RBC 3.12 10x6/uL (4.00-5.40); RDW 13.1 % (11.5-14.5); WBC 6.7 10x3/uL (4.8-10.8)
[2020-09-21 05:31] LABS: CALC OSMOLALITY 262 mosm/kg (275-300); CALCIUM 7.4 mg/dL (8.5-10.1); CARBON DIOXIDE 17.2 mmol/L (21.0-32.0); CHLORIDE - SERUM 103 mmol/L (98-107); GLUCOSE 108 mg/dL (74-106); POTASSIUM - SERUM 3.5 mmol/L (3.5-5.1); SODIUM 131 mmol/L (136-145); UREA NITROGEN 10 mg/dL (7-18); eGFR NON AFRICAN AMERICAN 87 mL/min (90-120)
[2020-09-21 05:40] LABS: CREATININE - SERUM 0.7 mg/dL (0.6-1.3); MAGNESIUM - SERUM 2.4 mg/dL (1.8-2.4); PHOSPHOROUS 1.6 mg/dL (2.5-4.9)
[2020-09-21 05:59] VITALS: BP 111/54
--- NOTE | 2020-09-21 08:05 | NUR ---
ASSESSMENT PER FLOW SHEET.PATIENT IS WITHOUT DISTRESS. NPO FOR PROCEDURE. CONSENTS TO CHART. LYUBOV MAT PLACED ON BED FOR SAFETY,FALL PREVENTION. BED ALARM DOES NOT WORK. PATIENT INSTRUCTED CROCHET MACHINE OPERATOR LIGHT USE. DOOR OPEN TO MONITOR. SCD'S IN PLACE. IS INSTRUCTED. PATIENT DECLINED AT PRESENT. SHE STATED CAUSES TO MUCH PAIN IN ABDOMEN.
[2020-09-21 08:39] VITALS: BP 114/55
[2020-09-21 09:15] LABS: APTT 34.5 SECONDS (22.8-39.4); INR 1.57 (0.85-1.17); PROTIME 17.4 SECONDS (11.6-15.0)
--- NOTE | 2020-09-21 10:55 | NUR ---
MADRIGAL CATH DCD ORDERED.CATH TIP INTACT. DARK URINE IN BAG.
[2020-09-21 12:03] VITALS: BP 123/57
[2020-09-21 12:35] VITALS: Ht 160 cm; Wt 56.2 kg
--- NOTE | 2020-09-21 14:37 | NUR ---
PATIENT REMAINS WITHOUT NEEDS. VITAMIN K ORDERED PER AUG.
[2020-09-21 16:43] VITALS: BP 128/64
--- NOTE | 2020-09-21 17:38 | NUR ---
PATIENT IS WITHOUT DISTRESS. AT BEDSIDE. CONT PLAN OF CARE
--- NOTE | 2020-09-21 18:25 | NUR ---
PATIENT VOIDED 450 CC IN BEDPAN. URINE DARK IN COLOR
[2020-09-21 20:00] VITALS: BP 104/56
[2020-09-22 04:00] VITALS: BP 112/62
[2020-09-22 05:51] LABS: BASOPHILS 0.1 % (0-2); EOSINOPHILS 0.1 % (0-7); HEMATOCRIT 29.9 % (36.0-48.0); HEMOGLOBIN 9.6 g/dL (12-16); IMMATURE GRANULOCYTES 0.3 % (0-5); LYMPHOCYTE ABS# 0.55 10x3/uL (1.18-3.74); LYMPHOCYTES 5.8 % (15-50); MCH 30.5 pg (26.0-34.0); MCHC 32.1 g/dL (31.0-37.0); MCV 94.9 fL (80.0-100.0); MEAN PLATELET VOLUME 9.6 fL (7.4-10.4); MONOCYTES 4.2 % (2-11); NEUTROPHIL ABS# 8.54 10x3/uL (1.56-6.13); NEUTROPHILS 89.5 % (40-80); PLATELET COUNT 202 10x3/uL (130-400); RBC 3.15 10x6/uL (4.00-5.40); RDW 13.5 % (11.5-14.5)
[2020-09-22 06:10] LABS: WBC 9.5 10x3/uL (4.8-10.8)
[2020-09-22 06:20] LABS: CALC OSMOLALITY 260 mosm/kg (275-300); CALCIUM 7.3 mg/dL (8.5-10.1); CARBON DIOXIDE 15.8 mmol/L (21.0-32.0); CHLORIDE - SERUM 102 mmol/L (98-107); CREATININE - SERUM 0.7 mg/dL (0.6-1.3); GLUCOSE 105 mg/dL (74-106); MAGNESIUM - SERUM 1.9 mg/dL (1.8-2.4); POTASSIUM - SERUM 3.5 mmol/L (3.5-5.1); SODIUM 131 mmol/L (136-145); UREA NITROGEN 8 mg/dL (7-18); eGFR NON AFRICAN AMERICAN 87 mL/min (90-120)
[2020-09-22 06:42] LABS: C-REACTIVE PROTEIN 25.6 mg/dL (0.0-0.9)
[2020-09-22 07:34] LABS: APTT 32.3 SECONDS (22.8-39.4); INR 1.5 (0.85-1.17); PROTIME 16.8 SECONDS (11.6-15.0)
--- NOTE | 2020-09-22 07:49 | NUR ---
ALERT AND ORIENTED. ASSESSMENT COMPLETE. DENIES NEEDS. BED LOW. CALL HERNANDEZ AND PERSONAL ITEMS IN REACH. WILL CONTINUE TO MONITOR.
--- NOTE | 2020-09-22 08:33 | NUR ---
PATIENT TAKEN FOR PROCEDURE.
--- NOTE | 2020-09-22 08:55 | NUR ---
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 STICKER PLACED ON FRONT OF CHART TO NOTIFY OF FACTOR FIVE CLOTTING DISORDER.
[2020-09-22 09:04] VITALS: BP 112/55
--- NOTE | 2020-09-22 10:14 | NUR ---
IV LEAKING TO RIGHT AC. REMOVED WITH TIP INTACT. PER DR WILDE AT BEDSIDE, DO NOT PLACE NEW IV. STATES WILL PLACE CENTRAL LINE IN SURGERY. ORDER PLACED FOR NORCO 10 NOW.
--- NOTE | 2020-09-22 10:33 | NUR ---
CONSENTS OBTAINED FOR PROCEDURE AND CENTRAL LINE PLACEMENT AND PLACED ON CHART. ONE TIME DOSE NORCO GIVEN.
--- NOTE | 2020-09-22 11:57 | NUR ---
PHOS 2.0. NO IV ACCESS. UNABLE TO TREAT PO D/T NPO STATUS. WILL TREAT PHOS POST CENTRAL LINE PLACEMENT.
--- NOTE | 2020-09-22 12:08 | NUR ---
SURGERY CALLED TO PREOP PATIENT. NO PREOP ORDERS IN. PATIENT ALSO DOES NOT HAVE AN IV AND MD AWARE. PLACING CENTRAL LINE. SURGERY NOTIFIED.
[2020-09-22 12:31] VITALS: BP 120/70
--- NOTE | 2020-09-22 12:55 | NUR ---
PATIENT TAKEN FOR PROCEDURE.
[2020-09-22 16:10] VITALS: BP 97/51
--- NOTE | 2020-09-22 16:24 | NUR ---
REC'D BACK FROM SURGERY AT THIS TIME WITH DRESSING INTACT TO ABD WITH THREE LAP SITES NOTED. GARETH DRAIN NOTED TO LLQ WITH 90 ML NOTED. VS PER PROTOCOL AT THIS TIME. AND C/L IUN REACH AT BEDSIDE.
[2020-09-22 20:00] VITALS: BP 101/62
[2020-09-23 04:00] VITALS: BP 112/66
--- NOTE | 2020-09-23 04:50 | NUR ---
I have reviewed this patient and I concur with the Shift Assessment completed by the Licensed Practical Nurse today this shift.
[2020-09-23 06:41] LABS: BASOPHILS 0 % (0-2); EOSINOPHILS 0 % (0-7); HEMATOCRIT 30.4 % (36.0-48.0); HEMOGLOBIN 9.8 g/dL (12-16); IMMATURE GRANULOCYTES 0.4 % (0-5); LYMPHOCYTE ABS# 0.31 10x3/uL (1.18-3.74); LYMPHOCYTES 3.9 % (15-50); MCH 30.2 pg (26.0-34.0); MCHC 32.2 g/dL (31.0-37.0); MCV 93.8 fL (80.0-100.0); MEAN PLATELET VOLUME 9.7 fL (7.4-10.4); MONOCYTES 2.3 % (2-11); NEUTROPHIL ABS# 7.38 10x3/uL (1.56-6.13); NEUTROPHILS 93.4 % (40-80); PLATELET COUNT 226 10x3/uL (130-400); RBC 3.24 10x6/uL (4.00-5.40); RDW 13.6 % (11.5-14.5); WBC 7.9 10x3/uL (4.8-10.8)
[2020-09-23 06:42] LABS: CALC OSMOLALITY 269 mosm/kg (275-300); CALCIUM 7.7 mg/dL (8.5-10.1); CARBON DIOXIDE 15.9 mmol/L (21.0-32.0); CHLORIDE - SERUM 106 mmol/L (98-107); CREATININE - SERUM 0.6 mg/dL (0.6-1.3); GLUCOSE 124 mg/dL (74-106); MAGNESIUM - SERUM 2.1 mg/dL (1.8-2.4); PHOSPHOROUS 1.9 mg/dL (2.5-4.9); POTASSIUM - SERUM 3.3 mmol/L (3.5-5.1); SODIUM 135 mmol/L (136-145); UREA NITROGEN 9 mg/dL (7-18); eGFR NON AFRICAN AMERICAN > 90 mL/min (90-120)
[2020-09-23 06:47] LABS: INR 1.44 (0.85-1.17); PROTIME 16.2 SECONDS (11.6-15.0)
--- NOTE | 2020-09-23 07:15 | NUR ---
REC'D IN BED AWAKE AND ALERT. RESP EVEN AND UNLABORED WITH NO DISTRESS NOTED. CAN EXPRESS NEEDS AND WANTS. NO C/O NOTED OR VOICED AT THIS TIME. ASSESSMENT COMPLETED. C/L IN REACH AT BEDSIDE.
[2020-09-23 08:44] VITALS: BP 133/71
--- NOTE | 2020-09-23 10:30 | NUR ---
CALL WAS PLACED TO METROLOGY TECHNICIAN ABOUT PT NOT HAVING ANY PAIN MEDICATION ON AUG. AWAITING RESPONSE.
--- NOTE | 2020-09-23 10:38 | NUR ---
REC'D CALL BACK FROM COMMUNITY THEATER ACTOR WITH NEW ORDERS FOR FULL LIQUID DIET AND NORCO 10 MG EVERY 6 HRS FOR PAIN NEEDED. PT AND MADE AWARE OF NEW ORDERS. C/L IN REACH AT BEDSIDE.
--- NOTE | 2020-09-23 11:50 | NUR ---
PT ASSISTED UP OUT OF BED TO CHAIR AT THIS TIME X 1 PERSON ASSIST. TOLERATED WELL. NO C/O NOTED OR VOICED. C/L IN REACH AT BEDSIDE.
[2020-09-23 14:00] VITALS: BP 150/73
--- NOTE | 2020-09-23 14:44 | NUR ---
I have reviewed this patient and I concur with the Shift Assessment completed by the Licensed Practical Nurse today this shift.
[2020-09-23 18:13] VITALS: BP 127/75
[2020-09-23 20:00] VITALS: BP 125/66
--- NOTE | 2020-09-24 03:34 | NUR ---
PT CONTAINER MAKER LIGHT COMPLAINING OF SEVERE PAIN. PT HELP HER TO USE BED ABBOTT AND ACCIDENTALY PUSHED HER STOMACH AND IS PAINFULL AFTER NORCO AND TORADOL. MD WILDE WAS INFORMED AND OK TO USE DILAUDID 0.5 IV ONE TIME IF PAIN CONT. PT REFUSE MED AT THE MOMENT. PT HELPED TO BEDSIDE COMODE AND HAD LIQUID BOWEL MOVEMENT. WILL CONT TO MONITOR.
[2020-09-24 04:00] VITALS: BP 110/63
--- NOTE | 2020-09-24 05:27 | NUR ---
I have reviewed this patient and I concur with the Shift Assessment completed by the Licensed Practical Nurse today this shift.
[2020-09-24 06:02] LABS: BASOPHILS 0 % (0-2); EOSINOPHILS 0.1 % (0-7); HEMATOCRIT 34.1 % (36.0-48.0); HEMOGLOBIN 11.3 g/dL (12-16); IMMATURE GRANULOCYTES 0.7 % (0-5); LYMPHOCYTE ABS# 0.47 10x3/uL (1.18-3.74); LYMPHOCYTES 6.5 % (15-50); MCH 30.1 pg (26.0-34.0); MCHC 33.1 g/dL (31.0-37.0); MEAN PLATELET VOLUME 9.8 fL (7.4-10.4); MONOCYTES 6.4 % (2-11); NEUTROPHIL ABS# 6.24 10x3/uL (1.56-6.13); NEUTROPHILS 86.3 % (40-80); PLATELET COUNT 243 10x3/uL (130-400); RBC 3.75 10x6/uL (4.00-5.40); RDW 13.6 % (11.5-14.5); WBC 7.2 10x3/uL (4.8-10.8)
[2020-09-24 06:12] LABS: MCV 90.9 fL (80.0-100.0)
[2020-09-24 07:26] LABS: INR 1.33 (0.85-1.17); PROTIME 15.3 SECONDS (11.6-15.0)
[2020-09-24 07:52] VITALS: BP 94/56
[2020-09-24 08:47] LABS: CALC OSMOLALITY 270 mosm/kg (275-300); CALCIUM 7.1 mg/dL (8.5-10.1); CARBON DIOXIDE 17.3 mmol/L (21.0-32.0); CHLORIDE - SERUM 107 mmol/L (98-107); CREATININE - SERUM 0.7 mg/dL (0.6-1.3); GLUCOSE 129 mg/dL (74-106); MAGNESIUM - SERUM 1.8 mg/dL (1.8-2.4); PHOSPHOROUS 1.6 mg/dL (2.5-4.9); SODIUM 135 mmol/L (136-145); UREA NITROGEN 9 mg/dL (7-18); eGFR NON AFRICAN AMERICAN 87 mL/min (90-120)
[2020-09-24 08:49] LABS: POTASSIUM - SERUM 2.7 mmol/L (3.5-5.1)
--- NOTE | 2020-09-24 10:45 | NUR ---
Nutrition follow-up: Pt s/p abscess drained Diet order: Clear liquids; was full liquids 09/23/20 Labs reviewed Wt: 123# Pt with increased pain If diet unable to advance past clears will need to start nutrition support. Recommend: ProcalAmine PPN @ 50 ml/hr RDN will follow-up: 09/28/20
[2020-09-24 11:20] VITALS: BP 131/69
[2020-09-24 20:00] VITALS: BP 100/64
[2020-09-25] VITALS: BP 121/73
[2020-09-25 04:00] VITALS: BP 141/82
--- NOTE | 2020-09-25 04:17 | NUR ---
ASSESSED AT THE BEGINNING OF THE SHIFT. PT IS ALERT AND ORIENTED, ABLE TO VERBALIZE NEEDS. SHE HAS AN ABD INCISION AND GARETH DRAIN IN PLACE WITH BROWN /GREEN LIQUID STOOL. HER LEFT ARM IS RESERVE BUT HER IV IS A SUBCLAVIAN ON THE LEFT. SHE HAS HER SCDS IN PLACE AND HAS AN ORDER FOR O2 IF NEEDED BUT HAS NOT BEEN NEEDED. EARLIER SHE RECEIVED TORADOL AND FWAS COMFORTABLE FOR A WHILE. THIS MORNING SHE REQUESTED PAIN MEDS AFTER GETTING UP TO THE BSC. THIS WAS GIVEN HER AND SHE IMMEDIATELY THREW IT UP. ZOFRAN WAS GIVEN AND WE ARE REPLACING IT. SHE DID LET US GIVE HER LOVENOX LAST NIGHT.
[2020-09-25 06:55] LABS: BASOPHILS 0.1 % (0-2); EOSINOPHILS 0.4 % (0-7); HEMATOCRIT 30.7 % (36.0-48.0); HEMOGLOBIN 10.2 g/dL (12-16); IMMATURE GRANULOCYTES 0.9 % (0-5); LYMPHOCYTE ABS# 0.57 10x3/uL (1.18-3.74); LYMPHOCYTES 4.7 % (15-50); MCHC 33.2 g/dL (31.0-37.0); MCV 90.3 fL (80.0-100.0); MEAN PLATELET VOLUME 9.8 fL (7.4-10.4); MONOCYTES 4.7 % (2-11); NEUTROPHIL ABS# 10.71 10x3/uL (1.56-6.13); NEUTROPHILS 89.2 % (40-80); PLATELET COUNT 254 10x3/uL (130-400); RDW 13.9 % (11.5-14.5)
[2020-09-25 07:07] LABS: INR 1.85 (0.85-1.17); PROTIME 19.8 SECONDS (11.6-15.0)
[2020-09-25 07:10] LABS: CALC OSMOLALITY 271 mosm/kg (275-300); CALCIUM 7.4 mg/dL (8.5-10.1); CHLORIDE - SERUM 107 mmol/L (98-107); CREATININE - SERUM 0.7 mg/dL (0.6-1.3); GLUCOSE 112 mg/dL (74-106); MAGNESIUM - SERUM 1.9 mg/dL (1.8-2.4); POTASSIUM - SERUM 3.1 mmol/L (3.5-5.1); SODIUM 136 mmol/L (136-145); UREA NITROGEN 10 mg/dL (7-18); eGFR NON AFRICAN AMERICAN 87 mL/min (90-120)
[2020-09-25 07:18] LABS: PHOSPHOROUS 1.2 mg/dL (2.5-4.9)
--- NOTE | 2020-09-25 08:00 | NUR ---
ASSESSMENT PER FLOW SHEET. PATIENT IS WITHOUT DISTRESS.DENIES NEEDS AT PRESENT. CALL LIGHT IN REACH.
[2020-09-25 08:34] VITALS: BP 110/59
[2020-09-25 13:06] VITALS: BP 118/73
[2020-09-25 17:11] VITALS: BP 158/91
[2020-09-25 19:40] VITALS: BP 143/75
[2020-09-26 00:54] VITALS: BP 141/72
--- NOTE | 2020-09-26 03:30 | NUR ---
ASSESSED AT THE BEGINNING OF THE SHIFT. PT IS ALERT AND ORIENTED, ABLE TO VERBALIZE NEEDS. TONIGHT SHE HAS BEEN ASSISTED WITH A COMPLETE BED BAHT AND HAIR WASH. HER GARETH DRAIN DRESSING WAS CHANGED AFTER CLEANING THE SKIN. SHE HAS BEEN TEARFUL TONIGHT WORRIED ABOUT SURGERY IN THE MORNING. AT MIDNIGHT SHE STOPPED DRINKING AND WAS PLACED NPO. AT THIS TIME SHE HAS HAD PAIN MEDS TO MAKE HER COMFORTABLE ORDERED.
[2020-09-26 05:00] VITALS: BP 149/81
[2020-09-26 07:33] LABS: ALBUMIN 1.4 g/dL (3.4-5.0); ALKALINE PHOSPHATASE 35 U/L (30-120); ALT (SGPT) 9 U/L (10-68); BASOPHILS 0.2 % (0-2); BILIRUBIN - TOTAL 0.27 mg/dL (0.2-1.3); CALC OSMOLALITY 270 mosm/kg (275-300); CALCIUM 7.1 mg/dL (8.5-10.1); CARBON DIOXIDE 16.1 mmol/L (21.0-32.0); CHLORIDE - SERUM 109 mmol/L (98-107); CREATININE - SERUM 0.6 mg/dL (0.6-1.3); EOSINOPHILS 1.9 % (0-7); GLUCOSE 88 mg/dL (74-106); HEMOGLOBIN 9.2 g/dL (12-16); IMMATURE GRANULOCYTES 1.3 % (0-5); LYMPHOCYTE ABS# 0.71 10x3/uL (1.18-3.74); LYMPHOCYTES 4.7 % (15-50); MAGNESIUM - SERUM 1.8 mg/dL (1.8-2.4); MCH 30.4 pg (26.0-34.0); MCHC 34.1 g/dL (31.0-37.0); MCV 89.1 fL (80.0-100.0); NEUTROPHILS 86.9 % (40-80); PLATELET COUNT 269 10x3/uL (130-400); PROTEIN - SERUM 3.7 g/dL (6.4-8.2); RBC 3.03 10x6/uL (4.00-5.40); SODIUM 137 mmol/L (136-145); UREA NITROGEN 8 mg/dL (7-18); eGFR NON AFRICAN AMERICAN > 90 mL/min (90-120)
[2020-09-26 07:34] LABS: WBC 15.1 10x3/uL (4.8-10.8)
[2020-09-26 07:37] LABS: PHOSPHOROUS 2.8 mg/dL (2.5-4.9)
[2020-09-26 07:41] LABS: INR 1.5 (0.85-1.17); PROTIME 16.7 SECONDS (11.6-15.0)
[2020-09-26 08:09] VITALS: BP 125/74
--- NOTE | 2020-09-26 09:00 | NUR ---
ALERT AND ORIENTED. ASSESSMENT COMPLETE. DENIES NEEDS. BED LOW. CALL HERNANDEZ AND PERSONAL ITEMS IN REACH. WILL CONTINUE TO MONITOR.
--- NOTE | 2020-09-26 13:52 | NUR ---
GARETH DRAIN OUTPUT #1- 110 ML #2- 25 ML
--- NOTE | 2020-09-26 14:13 | NUR ---
GARETH OUTPUT #1- 60 ML #2- 80 ML
[2020-09-26 14:29] VITALS: BP 113/70
--- NOTE | 2020-09-26 15:06 | NUR ---
WOUND VAC ALARMING D/T LEAK. UNABLE TO FIND LEAK. DRSG FULLY SEALED. WILL HAVE SECOND RN CHECK.
--- NOTE | 2020-09-26 15:43 | NUR ---
OPHTHALMIC SURGEON SET UP FOR PATIENT.
--- NOTE | 2020-09-26 16:23 | NUR ---
SPOKE WITH DR GARCIA ABOUT PATIENT'S WOUND VAC. STATES WILL COME FIX WOUND VAC SOON HE CAN. SUPPLIES IN ROOM.
--- NOTE | 2020-09-26 16:56 | NUR ---
VITALS REMAIN STABLE. FAMILY AT BEDSIDE. REQUESTED AND GIVEN POPSICLE.
--- NOTE | 2020-09-26 17:56 | NUR ---
WOUND VAC SEAL FIXED BY DR GARCIA. OSTOMY BAG SEALED UNDER WOUND VAC DRSG BY SURGEON. STATES BAG WILL "TAKE A FEW DAYS TO FILL." STATES HE WILL CHANGE WOUND VAC DRSG ON MONDAY.
[2020-09-26 20:52] VITALS: BP 109/71
[2020-09-27 00:56] VITALS: BP 128/67
[2020-09-27 04:34] VITALS: BP 121/76
[2020-09-27 06:05] LABS: BASOPHILS 0 % (0-2); EOSINOPHILS 0 % (0-7); HEMATOCRIT 25.1 % (36.0-48.0); HEMOGLOBIN 8.3 g/dL (12-16); IMMATURE GRANULOCYTES 1.4 % (0-5); LYMPHOCYTE ABS# 0.52 10x3/uL (1.18-3.74); LYMPHOCYTES 3.5 % (15-50); MCH 29.6 pg (26.0-34.0); MCHC 33.1 g/dL (31.0-37.0); MCV 89.6 fL (80.0-100.0); MEAN PLATELET VOLUME 9.8 fL (7.4-10.4); NEUTROPHIL ABS# 13.56 10x3/uL (1.56-6.13); NEUTROPHILS 92.1 % (40-80); PLATELET COUNT 283 10x3/uL (130-400); RDW 14.5 % (11.5-14.5); WBC 14.7 10x3/uL (4.8-10.8)
[2020-09-27 06:21] LABS: INR 1.41 (0.85-1.17); PROTIME 15.9 SECONDS (11.6-15.0)
[2020-09-27 06:28] LABS: ALBUMIN 1.3 g/dL (3.4-5.0); ALKALINE PHOSPHATASE 29 U/L (30-120); ALT (SGPT) 9 U/L (10-68); BILIRUBIN - TOTAL 0.28 mg/dL (0.2-1.3); CALC OSMOLALITY 275 mosm/kg (275-300); CALCIUM 7.1 mg/dL (8.5-10.1); CHLORIDE - SERUM 110 mmol/L (98-107); CREATININE - SERUM 0.6 mg/dL (0.6-1.3); GLUCOSE 111 mg/dL (74-106); MAGNESIUM - SERUM 1.6 mg/dL (1.8-2.4); POTASSIUM - SERUM 3.7 mmol/L (3.5-5.1); PROTEIN - SERUM 4.1 g/dL (6.4-8.2); SODIUM 138 mmol/L (136-145); UREA NITROGEN 9 mg/dL (7-18); eGFR NON AFRICAN AMERICAN > 90 mL/min (90-120)
[2020-09-27 06:34] LABS: PHOSPHOROUS 3.9 mg/dL (2.5-4.9)
--- NOTE | 2020-09-27 07:53 | NUR ---
ALERT AND ORIENTED. ASSESSMENT COMPLETE. BED LOW. CALL HERNANDEZ AND PERSONAL ITEMS IN REACH. WILL CONTINUE TO MONITOR.
[2020-09-27 09:04] VITALS: BP 123/58
--- NOTE | 2020-09-27 11:31 | NUR ---
PATIENT UP TO SIDE OF BED WITH PT BEATA. PT STATES PATIENT COULDN'T GO FARTHER THAN SIDE OF BED. SPOKE WITH PT THAT PATIENT NEEDS TO GET UP AND WALK. STATES DONE WITH PATIENT FOR THE DAY. INFORMED PATIENT SHE NEEDS TO BE WALKING.
[2020-09-27 12:06] VITALS: BP 121/73
--- NOTE | 2020-09-27 16:44 | NUR ---
PATIENT OFFLOADED TO LEFT SIDE PER REQUEST. PILLOW UNDER RIGHT SIDE. STATES MIGHT WANT TO GET UP TO CHAIR LATER BUT NOT RIGHT NOW.
[2020-09-27 16:48] VITALS: BP 113/72
--- NOTE | 2020-09-27 18:05 | NUR ---
PATIENT ASSISTED UP TO CHAIR AT BEDSIDE PER REQUEST WITH TWO NURSES. BED STRIPPED AND REMADE. ROOM CLEANED. DAUGHTER AT BEDSIDE. PATIENT DENIES NEEDS. WANTS TO STAY UP IN CHAIR. GARETH DRAINS EMPTIED. WILL CONTINUE TO MONITOR.
--- NOTE | 2020-09-27 18:59 | NUR ---
INSULATION BLANKET MAKER DC PER ORDER. PRN NORCO GIVEN. ASSISTED BACK TO BED. DENIES NEEDS.
[2020-09-27 19:54] VITALS: BP 136/71
[2020-09-28 04:22] VITALS: BP 127/67
[2020-09-28 06:37] LABS: BASOPHILS 0.1 % (0-2); EOSINOPHILS 1.5 % (0-7); HEMATOCRIT 22.3 % (36.0-48.0); IMMATURE GRANULOCYTES 1.2 % (0-5); LYMPHOCYTE ABS# 1.06 10x3/uL (1.18-3.74); LYMPHOCYTES 8.1 % (15-50); MCH 29.4 pg (26.0-34.0); MCHC 33.2 g/dL (31.0-37.0); MCV 88.5 fL (80.0-100.0); MONOCYTES 6.9 % (2-11); NEUTROPHIL ABS# 10.78 10x3/uL (1.56-6.13); NEUTROPHILS 82.2 % (40-80); PLATELET COUNT 292 10x3/uL (130-400); RBC 2.52 10x6/uL (4.00-5.40); RDW 14.3 % (11.5-14.5); WBC 13.1 10x3/uL (4.8-10.8)
[2020-09-28 06:38] LABS: HEMOGLOBIN 7.4 g/dL (12-16)
--- NOTE | 2020-09-28 06:48 | NUR ---
NOTIFIED DR. GARCIA OF HGB 7.4 - ORDERED 2 UNITS PRBC'S TO BE TRANSFUSED. NOTIFIED BLOOD BANK OF ORDER.
[2020-09-28 07:03] LABS: ALBUMIN 1.4 g/dL (3.4-5.0); ALKALINE PHOSPHATASE 31 U/L (30-120); BILIRUBIN - TOTAL 0.33 mg/dL (0.2-1.3); CALCIUM 7.4 mg/dL (8.5-10.1); CARBON DIOXIDE 16.5 mmol/L (21.0-32.0); CHLORIDE - SERUM 108 mmol/L (98-107); CREATININE - SERUM 0.7 mg/dL (0.6-1.3); GLUCOSE 86 mg/dL (74-106); MAGNESIUM - SERUM 1.8 mg/dL (1.8-2.4); PROTEIN - SERUM 4.1 g/dL (6.4-8.2); SODIUM 137 mmol/L (136-145); eGFR NON AFRICAN AMERICAN 87 mL/min (90-120)
[2020-09-28 07:06] LABS: ALT (SGPT) 12 U/L (10-68); CALC OSMOLALITY 272 mosm/kg (275-300); PHOSPHOROUS 2.7 mg/dL (2.5-4.9); UREA NITROGEN 12 mg/dL (7-18)
--- NOTE | 2020-09-28 07:10 | NUR ---
Nutrition consult (late): Just received consult from 09/26/20 to start and manage TPN for Dr. 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 Ornelas consult. RDN will follow-up: 09/29/20
--- NOTE | 2020-09-28 07:49 | NUR ---
PATIENT HGB IS 7.4, NOTIFIED PATIENT SHE WILL BE RECEIVING 2 UNITS OF BLOOD TODAY. CONTINUE WITH PLAN OF CARE
[2020-09-28 09:17] LABS: INR 1.38 (0.85-1.17); PROTIME 15.7 SECONDS (11.6-15.0)
[2020-09-28 09:22] VITALS: BP 133/74
--- NOTE | 2020-09-28 13:00 | NUR ---
STARTED 1ST UNIT OF PRBC FOR PATIENT, VSS. AFEBRILE, TOLERATING WELL, CONTINUE WITH PLAN OF CARE
[2020-09-28 14:42] VITALS: BP 138/76
--- NOTE | 2020-09-28 14:48 | NUR ---
I have reviewed this patient and I concur with the Shift Assessment completed by the Licensed Practical Nurse today this shift.
--- NOTE | 2020-09-28 14:48 | NUR ---
I have reviewed this patient and I concur with the Shift Assessment completed by the Licensed Practical Nurse today this shift.
--- NOTE | 2020-09-28 16:45 | NUR ---
started patient second unit of blood at 1630, patient sitting up on chair with daughter at bedside, no needs voiced at this time. continue with plan of care
[2020-09-28 18:55] VITALS: BP 154/82
[2020-09-28 20:00] VITALS: BP 150/87
[2020-09-29] VITALS: BP 141/89; BP 143/88
[2020-09-29 04:00] VITALS: BP 145/85
[2020-09-29 06:10] LABS: BASOPHILS 0.2 % (0-2); EOSINOPHILS 1.7 % (0-7); IMMATURE GRANULOCYTES 1.4 % (0-5); LYMPHOCYTE ABS# 0.88 10x3/uL (1.18-3.74); LYMPHOCYTES 7.7 % (15-50); MCH 29.9 pg (26.0-34.0); MCHC 34.1 g/dL (31.0-37.0); MCV 87.6 fL (80.0-100.0); MEAN PLATELET VOLUME 9.9 fL (7.4-10.4); MONOCYTES 6.5 % (2-11); NEUTROPHIL ABS# 9.49 10x3/uL (1.56-6.13); NEUTROPHILS 82.5 % (40-80); PLATELET COUNT 284 10x3/uL (130-400); RDW 14.2 % (11.5-14.5); RETIC 1.43 % (0.45-2.28); WBC 11.5 10x3/uL (4.8-10.8)
[2020-09-29 06:15] LABS: HEMATOCRIT 33.1 % (36.0-48.0); HEMOGLOBIN 11.3 g/dL (12-16); RBC 3.78 10x6/uL (4.00-5.40)
[2020-09-29 06:31] LABS: % SATURATION 29 % (15-55); IRON 29 ug/dl (35-150); TOTAL IRON BIND CAPACITY 99 ug/dl (260-445); UNSAT IRON BIND CAPACITY 70 ug/dl (150-375)
[2020-09-29 06:59] LABS: ALBUMIN 1.5 g/dL (3.4-5.0); ALKALINE PHOSPHATASE 36 U/L (30-120); ALT (SGPT) 11 U/L (10-68); BILIRUBIN - TOTAL 0.41 mg/dL (0.2-1.3); CALC OSMOLALITY 275 mosm/kg (275-300); CALCIUM 7.3 mg/dL (8.5-10.1); CARBON DIOXIDE 21.2 mmol/L (21.0-32.0); CHLORIDE - SERUM 106 mmol/L (98-107); CREATININE - SERUM 0.6 mg/dL (0.6-1.3); FERRITIN 728 ng/mL (3-244); GLUCOSE 208 mg/dL (74-106); MAGNESIUM - SERUM 1.9 mg/dL (1.8-2.4); PHOSPHOROUS 3.2 mg/dL (2.5-4.9); PROTEIN - SERUM 4.6 g/dL (6.4-8.2); SODIUM 136 mmol/L (136-145); UREA NITROGEN 6 mg/dL (7-18); eGFR NON AFRICAN AMERICAN > 90 mL/min (90-120)
[2020-09-29 07:00] LABS: POTASSIUM - SERUM 2.6 mmol/L (3.5-5.1)
--- NOTE | 2020-09-29 07:00 | NUR ---
RECEIVED REPORT THAT PATIENT VOMITED TWICE LAST NIGHT WITH DARK RED TINGED GREEN EMESIS, SPOKE TO SHIRLEY MCKEON AND RECEIVED ORDERS FOR STAT KUB WELL NGT PLACEMENT. PATIENT K+ IS ALSO 2.6 THIS MORNING, FOLLOW EP AND REPLACE K+ CONTINUE WITH PLAN OF CARE
--- NOTE | 2020-09-29 08:20 | MORECARE ---
CASE MANAGEMENT DISCHARGE SUMMARY PATIENT: LINDA SEYMOUR UNIT: [id number] ADM DATE: 09/19/20 AGE: 75 : 47 SEX: F ROOM/BED: [facility] AUTHOR: SUAD,DOC PHYSICIAN: REFERRING PHYSICIAN: CELESTE REILLY MD DATE OF SERVICE: 09/29/20 Case Management Discharge Planning Summary DCP REVIEW SUMMARY ANTICIPATED D/C DATE: EXPECTED LOS : CASE STATUS: DCP Initiated INITIAL REVIEW: 09/19/2020 INITIAL REVIEWER: Ivon Izaguirre FINAL DISCHARGE DISPOSITION: : FINAL REVIEWER: FINAL REVIEW DATE: DCP Focus Questions & Answers DCP Screen QUESTION: ANSWER High Risk Factors: : 3 or more ED visits within the last 60 days DCP Evaluation QUESTION: ANSWER Patient's ability to cope with chronic illness : d. No chronic illness Would patient like to participate in any Care Coordination programs (if applicable): : Not applicable Mental health screen: : No mental health history DCP Re-evaluation QUESTION: ANSWER Would patient like to participate in any Care Coordination programs (if applicable): : Not applicable PATIENT: LINDA SEYMOUR ENCOUNTER: [id number] MEDICAL RECORD#: [id number] ADMISSION DATE: 09/19/2020 DISCHARGE DATE: ATTENDING MD: DAVID MANCILLA : AGE: 75 MARITAL STATUS: M DC PLAN ID: [id number] FACILITY: [facility] PRINTED ON: 09/29/20 8:20 CT All edits/amendments must be made on the electronic document DICTATION DATE: 09/29/20819 TRANSMITTER TESTER: DM 09/29/20819 RPT#: [id number] DC DATE: STATUS: ADM IN [facility] [address] [place] [address] END OF REPORT
--- NOTE | 2020-09-29 08:31 | MORECARE ---
CASE MANAGEMENT DISCHARGE SUMMARY PATIENT: LINDA SEYMOUR UNIT: [id number] ADM DATE: 09/19/20 AGE: 75 : 47 SEX: F ROOM/BED: D.2215 AUTHOR: EFRAIN BORJAS PHYSICIAN: REFERRING PHYSICIAN: CELESTE REILLY MD DATE OF SERVICE: 09/29/20 Case Management Discharge Planning Summary DCP REVIEW SUMMARY ANTICIPATED D/C DATE: EXPECTED LOS : CASE STATUS: DCP Initiated INITIAL REVIEW: 09/19/2020 INITIAL REVIEWER: Ivon Izaguirre FINAL DISCHARGE DISPOSITION: : FINAL REVIEWER: FINAL REVIEW DATE: DCP Focus Questions & Answers DCP Screen QUESTION: ANSWER High Risk Factors: : 3 or more ED visits within the last 60 days DCP Evaluation QUESTION: ANSWER Patient and/or caregiver agree upon recommended discharge plan? : Yes Family / Caregiver's ability to cope with chronic illness: : a. Adequate (ability to meet patient's medical needs, ensures patient attends medical appts.) Patient's current cognitive status: : *Oriented to person, place, situation, time and present Patient gives permission to discuss discharge plans with: (name, relationship and number) : SPOUSE Patient's ability to cope with chronic illness : a. Adequate (0-3 ED visits in 6 mos., adequate financial resources, attends scheduled appts.) Alternate discharge plan (if recommended plan not agreed upon by patient and/or caregiver): : INPATIENT REHAB VS HOME HEALTH Does the patient have the ability to pay for or attain post discharge needs / services? : Yes Functional screen assessment: : New onset in weakness or paralysis Family / Caregiver's ability to cope with chronic illness: : a. Adequate (ability to meet patient's medical needs, ensures patient attends medical appts.) Physical Status: : Independent with ADL's Equipment needed for post hospitalization: : Ostomy Supplies Is there a likelihood that the patient will require additional services to return to the preadmission environment? : Yes Functional screen comments: : WEAK, NEW OSTOMY Living Arrangements: : Home with Spouse/Significant Other Other Equipment comments: : WILL ORDER FROM [facility] Results of this evaluation have been discussed with: : Spouse Patient with capacity for self-care or can be cared for in same environment as prior to hospitalization? : No Baseline cognitive status: : *Oriented to person, place, situation, time and present Physical environment modification needed / anticipated for discharge: : No Medication Management: : Patient states can afford medications Planned post hospital services available for patient? : Yes Pharmacy name(s): : [facility] [address] Planned post hospital services covered by insurance plan? : Yes Does Patient have transportation to get home and to follow-up medical appointments when discharged from the hospital? : Yes Would patient like to participate in any Care Coordination programs (if applicable): : Not applicable Does the patient have electricity at home? : Yes Does the patient have running water in their house? : Yes Equipment in use: : Walker - Rolling Equipment in use: : Other Equipment in use: : Bedside Commode Other Equipment comments: : BARS IN BATH Mental health screen: : No mental health history Psychosocial status: : Independent adult (18-64) Abuse/Neglect: : None Resources / Services in place: : None DCP Re-evaluation QUESTION: ANSWER Would patient like to participate in any Care Coordination programs (if applicable): : Not applicable PATIENT: LINDA SEYMOUR ENCOUNTER: [id number] MEDICAL RECORD#: [id number] ADMISSION DATE: 09/19/2020 DISCHARGE DATE: ATTENDING MD: DAVID MANCILLA : AGE: 75 MARITAL STATUS: M DC PLAN ID: [id number] FACILITY: [facility] PRINTED ON: 09/29/20 8:31 CT All edits/amendments must be made on the electronic document DICTATION DATE: 09/29/20830 STEAM HAND: THAI 09/29/20830 RPT#: [id number] DC DATE: STATUS: ADM IN [facility] [address] [place] [address] END OF REPORT
--- NOTE | 2020-09-29 08:41 | MORECARE ---
CASE MANAGEMENT DISCHARGE SUMMARY PATIENT: LINDA SEYMOUR UNIT: [id number] ADM DATE: 09/19/20 AGE: 75 : 47 SEX: F ROOM/BED: D.2215 AUTHOR: SUADDOC PHYSICIAN: REFERRING PHYSICIAN: CELESTE REILLY MD DATE OF SERVICE: 09/29/20 Case Management Discharge Planning Summary COMMENTS ENTERED DATE: 09/29/20 8:22 CT COMMENT TYPE: Discharge Planning REVIEWER: Ivon Izaguirre LATE ENTRY 09/28/20 @ 12:00 CM met with patient and spouse to complete initial dc planning assessment. CM educated patient on the CM role and verbal consent given by patient to complete assessment. Patient lives at home with her spouse where she was independent with her care. She has been in the hospital and is very weak. She is unsure of what she needs. At discharge patient would like to return home if it is a safe discharge. CM discussed availability of home health, rehab services, and medical equipment. She has a walker and a BSC at home but currently does not need or use it. She has a new ostomy so she will need supplies and education. She will wait to see if she needs rehab. I will send info to [place] for Ostomy Supplies. CM will continue to follow and will assist as needed with dc plans/needs. DCP REVIEW SUMMARY ANTICIPATED D/C DATE: EXPECTED LOS : CASE STATUS: DCP Initiated INITIAL REVIEW: 09/19/2020 INITIAL REVIEWER: Ivon Izaguirre FINAL DISCHARGE DISPOSITION: : FINAL REVIEWER: FINAL REVIEW DATE: DCP Focus Questions & Answers DCP Screen QUESTION: ANSWER High Risk Factors: : 3 or more ED visits within the last 60 days DCP Evaluation QUESTION: ANSWER Patient and/or caregiver agree upon recommended discharge plan? : Yes Family / Caregiver's ability to cope with chronic illness: : a. Adequate (ability to meet patient's medical needs, ensures patient attends medical appts.) Patient's current cognitive status: : *Oriented to person, place, situation, time and present Patient gives permission to discuss discharge plans with: (name, relationship and number) : SPOUSE Patient's ability to cope with chronic illness : a. Adequate (0-3 ED visits in 6 mos., adequate financial resources, attends scheduled appts.) Alternate discharge plan (if recommended plan not agreed upon by patient and/or caregiver): : INPATIENT REHAB VS HOME HEALTH Does the patient have the ability to pay for or attain post discharge needs / services? : Yes Functional screen assessment: : New onset in weakness or paralysis Family / Caregiver's ability to cope with chronic illness: : a. Adequate (ability to meet patient's medical needs, ensures patient attends medical appts.) Physical Status: : Independent with ADL's Equipment needed for post hospitalization: : Ostomy Supplies Is there a likelihood that the patient will require additional services to return to the preadmission environment? : Yes Functional screen comments: : WEAK, NEW OSTOMY Living Arrangements: : Home with Spouse/Significant Other Other Equipment comments: : WILL ORDER FROM [facility] Results of this evaluation have been discussed with: : Spouse Patient with capacity for self-care or can be cared for in same environment as prior to hospitalization? : No Baseline cognitive status: : *Oriented to person, place, situation, time and present Physical environment modification needed / anticipated for discharge: : No Medication Management: : Patient states can afford medications Planned post hospital services available for patient? : Yes Pharmacy name(s): : [address] Planned post hospital services covered by insurance plan? : Yes Does Patient have transportation to get home and to follow-up medical appointments when discharged from the hospital? : Yes Would patient like to participate in any Care Coordination programs (if applicable): : Not applicable Does the patient have electricity at home? : Yes Does the patient have running water in their house? : Yes Equipment in use: : Walker - Rolling Equipment in use: : Other Equipment in use: : Bedside Commode Other Equipment comments: : BARS IN BATH Mental health screen: : No mental health history Psychosocial status: : Independent adult (18-64) Abuse/Neglect: : None Resources / Services in place: : None DCP Re-evaluation QUESTION: ANSWER Would patient like to participate in any Care Coordination programs (if applicable): : Not applicable PATIENT: LINDA SEYMOUR ENCOUNTER: [id number] MEDICAL RECORD#: [id number] ADMISSION DATE: 09/19/2020 DISCHARGE DATE: ATTENDING MD: DAVID MANCILLA : [id number] AGE: 75 MARITAL STATUS: M DC PLAN ID: [id number] FACILITY: [facility] PRINTED ON: 09/29/20 8:41 CT All edits/amendments must be made on the electronic document DICTATION DATE: 09/29/20840 CLINICAL QUALITY ANALYST: THAI 09/29/20840 RPT#: [id number] DC DATE: STATUS: ADM IN [facility] [address] [place] [address] END OF REPORT
[2020-09-29 09:34] VITALS: BP 148/84
--- NOTE | 2020-09-29 10:00 | NUR ---
PATIENT CONTINUES TO VOMIT AND HAVE NAUSEA, RN INSTRUCTOR AND STUDENT ATTEMPTED TO PLACE NGT WHEN PATIENT STARTED TO VOMIT, ASSISTANCE FROM ICU NURSE TO PLACE NGT, NGT SET TO LIS, PATIENT RESTING COMFORTABLY, DAUGHTER AT BEDSIDE, CONTINUE WITH PLAN OF CARE
--- NOTE | 2020-09-29 10:15 | NUR ---
Nutrition follow-up: Pt with coffee-ground emesis last night and this morning. NGT placed for decompression, management of N/V; reglan started Strict NPO Labs reviewed; K low TPN electrolytes adjusted; continues @ 40 ml/hr TG WNL; will begin 20% 250 ml intralipids q 48 hours RDN follow-up: 09/30/20
--- NOTE | 2020-09-29 12:53 | NUR ---
I have reviewed this patient and I concur with the Shift Assessment completed by the Licensed Practical Nurse today this shift.
[2020-09-29 13:23] VITALS: BP 131/80
--- NOTE | 2020-09-29 14:55 | NUR ---
OT NOTE: HOLD PER NURSING.. WILL EVAL TOMORROW JOSE D PRIETO, OTR/L
[2020-09-29 18:55] VITALS: BP 135/76
[2020-09-29 20:00] VITALS: BP 150/86
[2020-09-30 04:00] VITALS: BP 126/88
--- NOTE | 2020-09-30 06:28 | NUR ---
PATIENTS PAIN WAS MANAGED WITH THE PRESCRIBED PAIN MEDICATION, DAUGHTER HAS BEEN AT BEDSIDE, PATIENT APPEARED TO REST WELL LAST NIGHT. SHE IS CURRENTLY RESTING IN BED.
[2020-09-30 07:35] LABS: BASOPHILS 0.2 % (0-2); HEMOGLOBIN 12.7 g/dL (12-16); IMMATURE GRANULOCYTES 1.7 % (0-5); LYMPHOCYTE ABS# 1.26 10x3/uL (1.18-3.74); MCH 30.8 pg (26.0-34.0); MCHC 35.3 g/dL (31.0-37.0); MCV 87.4 fL (80.0-100.0); MONOCYTES 7.8 % (2-11); NEUTROPHILS 79.3 % (40-80); PLATELET COUNT 237 10x3/uL (130-400); RBC 4.12 10x6/uL (4.00-5.40); RDW 14.3 % (11.5-14.5); WBC 12.6 10x3/uL (4.8-10.8)
--- NOTE | 2020-09-30 08:46 | NUR ---
PATIENT AND DAUGHTER REPORT A BETTER NIGHT LAST NIGHT AND ACTUALLY SLEPT. BLADDER TRAINING PATIENT TO DC MADRIGAL. ASSISTED PATIENT TO SIDE OF BED TO DANGLE THEN STOOD AND DID SOME EXERCISES. PATIENT TOLERATED WELL AND THEN LAID BACK DOWN TO REST. NO NEEDS VOICED CONTINUE WITH PLAN OF CARE
[2020-09-30 08:49] VITALS: BP 138/84
[2020-09-30 09:17] LABS: ALBUMIN 1.8 g/dL (3.4-5.0); ALKALINE PHOSPHATASE 42 U/L (30-120); ALT (SGPT) 10 U/L (10-68); BILIRUBIN - TOTAL 0.42 mg/dL (0.2-1.3); CALC OSMOLALITY 274 mosm/kg (275-300); CALCIUM 7.1 mg/dL (8.5-10.1); CARBON DIOXIDE 24.5 mmol/L (21.0-32.0); CHLORIDE - SERUM 103 mmol/L (98-107); CREATININE - SERUM 0.6 mg/dL (0.6-1.3); GLUCOSE 155 mg/dL (74-106); MAGNESIUM - SERUM 1.9 mg/dL (1.8-2.4); PHOSPHOROUS 2.7 mg/dL (2.5-4.9); PROTEIN - SERUM 4.6 g/dL (6.4-8.2); SODIUM 137 mmol/L (136-145); UREA NITROGEN 6 mg/dL (7-18); VANCOMYCIN - TROUGH 13.4 ug/mL (10.0-20.0); eGFR NON AFRICAN AMERICAN > 90 mL/min (90-120)
[2020-09-30 09:18] LABS: POTASSIUM - SERUM 2.6 mmol/L (3.5-5.1)
--- NOTE | 2020-09-30 09:38 | NUR ---
PATIENT K+ IS 2.6 REPLACE PER PROTOCOL
--- NOTE | 2020-09-30 10:14 | NUR ---
Nutrition reassessment: Pt continues NPO TPN infusing @ 40 ml/hr; lipids 20% 250 ml q 48 hours Labs reviewed; K continues low and pt receiving replacement Wt: 124# Estiamted nutritional needs: [id number] kcal (25-30 Act BW) 56-73 gm protein (1.0-1.3 gm/kg ActBW) Inadequate oral intake R/T Hartmans with colostomy AEB continues NPO. Nutrition goals: - Pt will meet at least 75% of estimated kcal, protein needs with TPN, lipids - Meet est fluid needs - sTable dry wt Interventions: Pt now with TPN @ 40 ml/hr, 20% 250 ml lipids q 48 hours TPN + lipids providin kcal (60-71% estimated kcal needs) 48 gm protein (65-86% estimated protein needs) Recommendations: Continue current TPN today and replace K with rider RDN will increase TPN to provide: 1200 kcal (73-86% est kcal needs) 60 gm protein (82-107% est protein needs) RDN follow-up: 10/01/20
--- NOTE | 2020-09-30 10:31 | MORECARE ---
CASE MANAGEMENT DISCHARGE SUMMARY PATIENT: LINDA SEYMOUR UNIT: [id number] ADM DATE: 09/19/20 AGE: 75 : 47 SEX: F ROOM/BED: D.2215 AUTHOR: SUAD,EFRAIN PHYSICIAN: REFERRING PHYSICIAN: CELESTE REILLY MD DATE OF SERVICE: 09/30/20 Case Management Discharge Planning Summary COMMENTS ENTERED DATE: 09/30/20 10:25 CT COMMENT TYPE: Discharge Planning REVIEWER: Ivon Izaguirre SPOKE WITH PATIENT AND DAUGHTER THIS AM ABOUT NEXT LEVEL OF CARE, EXPLAINED TO THEM THAT WE WILL NEED TO SEE WHAT THE OT /ST/PT EVAL STATE ENTERED DATE: 09/29/20 8:22 CT COMMENT TYPE: Discharge Planning REVIEWER: Ivon Izaguirre LATE ENTRY 09/28/20 @ 12:00 CM met with patient and spouse to complete initial dc planning assessment. CM educated patient on the CM role and verbal consent given by patient to complete assessment. Patient lives at home with her spouse where she was independent with her care. She has been in the hospital and is very weak. She is unsure of what she needs. At discharge patient would like to return home if it is a safe discharge. CM discussed availability of home health, rehab services, and medical equipment. She has a walker and a BSC at home but currently does not need or use it. She has a new ostomy so she will need supplies and education. She will wait to see if she needs rehab. I will send info to [place] for Ostomy Supplies. CM will continue to follow and will assist as needed with dc plans/needs. DCP REVIEW SUMMARY ANTICIPATED D/C DATE: EXPECTED LOS : CASE STATUS: DCP Initiated INITIAL REVIEW: 09/19/2020 INITIAL REVIEWER: Ivon Izaguirre FINAL DISCHARGE DISPOSITION: : FINAL REVIEWER: FINAL REVIEW DATE: DCP Focus Questions & Answers DCP Screen QUESTION: ANSWER High Risk Factors: : 3 or more ED visits within the last 60 days DCP Evaluation QUESTION: ANSWER Patient and/or caregiver agree upon recommended discharge plan? : Yes Family / Caregiver's ability to cope with chronic illness: : a. Adequate (ability to meet patient's medical needs, ensures patient attends medical appts.) Patient's current cognitive status: : *Oriented to person, place, situation, time and present Patient gives permission to discuss discharge plans with: (name, relationship and number) : SPOUSE Patient's ability to cope with chronic illness : a. Adequate (0-3 ED visits in 6 mos., adequate financial resources, attends scheduled appts.) Alternate discharge plan (if recommended plan not agreed upon by patient and/or caregiver): : INPATIENT REHAB VS HOME HEALTH Does the patient have the ability to pay for or attain post discharge needs / services? : Yes Functional screen assessment: : New onset in weakness or paralysis Family / Caregiver's ability to cope with chronic illness: : a. Adequate (ability to meet patient's medical needs, ensures patient attends medical appts.) Physical Status: : Independent with ADL's Equipment needed for post hospitalization: : Ostomy Supplies Is there a likelihood that the patient will require additional services to return to the preadmission environment? : Yes Functional screen comments: : WEAK, NEW OSTOMY Living Arrangements: : Home with Spouse/Significant Other Other Equipment comments: : WILL ORDER FROM [facility] Results of this evaluation have been discussed with: : Spouse Patient with capacity for self-care or can be cared for in same environment as prior to hospitalization? : No Baseline cognitive status: : *Oriented to person, place, situation, time and present Physical environment modification needed / anticipated for discharge: : No Medication Management: : Patient states can afford medications Planned post hospital services available for patient? : Yes Pharmacy name(s): : [facility] Planned post hospital services covered by insurance plan? : Yes Does Patient have transportation to get home and to follow-up medical appointments when discharged from the hospital? : Yes Would patient like to participate in any Care Coordination programs (if applicable): : Not applicable Does the patient have electricity at home? : Yes Does the patient have running water in their house? : Yes Equipment in use: : Walker - Rolling Equipment in use: : Other Equipment in use: : Bedside Commode Other Equipment comments: : BARS IN BATH Mental health screen: : No mental health history Psychosocial status: : Independent adult (18-64) Abuse/Neglect: : None Resources / Services in place: : None DCP Re-evaluation QUESTION: ANSWER Would patient like to participate in any Care Coordination programs (if applicable): : Not applicable PATIENT: LINDA SEYMOUR ENCOUNTER: [id number] MEDICAL RECORD#: [id number] ADMISSION DATE: 09/19/2020 DISCHARGE DATE: ATTENDING MD: DAVID MANCILLA : AGE: 75 MARITAL STATUS: M DC PLAN ID: [id number] FACILITY: [facility] PRINTED ON: 09/30/20 10:31 CT All edits/amendments must be made on the electronic document DICTATION DATE: 09/30/20 103 [place] FORMER: THAI 09/30/20 103 RPT#: [id number] DC DATE: STATUS: ADM IN [facility] [address] [place] [address] END OF REPORT
--- NOTE | 2020-09-30 11:35 | NUR ---
PATIENT WOUND VAC AND COLOSTOMY IS WRAPPED TOGETHER DUE TO WOUND VAC LEAKING MONDAY, VERIFIED WITH SHIRLEY INGRAM THAT WOUND VAC WILL BE CHANGED WELL COLOSTOMY TODAY BY DR GARCIA. RELAYED INFORMATION TO WINDOWS MOBILE DEVELOPER WELL CASE MANAGEMENT. CONTINUE WITH PLAN OF CARE
[2020-09-30 12:19] VITALS: BP 119/89
--- NOTE | 2020-09-30 12:39 | NUR ---
APTIENT NGT CLAMPED WHILE PHYSICAL THERAPY GOT PATIENT TO CHAIR, WHILE GETTING PATIENT BACK TO BED SHE STATED PAIN IS AT AN 8. ADMINISTERED PO PAIN MEDICATION WHILE NGT CLAMPED ADVISED PT TO LET ME KNOW IF SHE GETS NAUSEOUS AND I WILL HOOK HER BACK UP. SPOUSE AT BEDSIDE, CONTINUE WITH PLAN OF CARE
--- NOTE | 2020-09-30 13:51 | NUR ---
I have reviewed this patient and I concur with the Shift Assessment completed by the Licensed Practical Nurse today this shift.
--- NOTE | 2020-09-30 15:20 | MORECARE ---
CASE MANAGEMENT DISCHARGE SUMMARY PATIENT: LINDA SEYMOUR UNIT: [id number] ADM DATE: 09/19/20 AGE: 75 : 49 SEX: F ROOM/BED: D.2215 AUTHOR: SUAD,DOC PHYSICIAN: REFERRING PHYSICIAN: CELESTE REILLY MD DATE OF SERVICE: 09/30/20 Case Management Discharge Planning Summary COMMENTS ENTERED DATE: 09/30/20 15:17 CT COMMENT TYPE: Discharge Planning REVIEWER: Ivon Izaguirre SPOKE WITH GEORGETTE WITH [facility] ABOUT OSTOMY SUPPLIES HE WILL GET ME INFO TOMORROW SO WE CAN GET THE PATIENT SET UP WITH [facility] PROPER SUPPLIES THAT SHE NEEDS ENTERED DATE: 09/30/20 10:25 CT COMMENT TYPE: Discharge Planning REVIEWER: Ivon Izaguirre SPOKE WITH PATIENT AND DAUGHTER THIS AM ABOUT NEXT LEVEL OF CARE, EXPLAINED TO THEM THAT WE WILL NEED TO SEE WHAT THE OT /ST/PT EVAL STATE ENTERED DATE: 09/29/20 8:22 CT COMMENT TYPE: Discharge Planning REVIEWER: Ivon Izaguirre LATE ENTRY 09/28/20 @ 12:00 CM met with patient and spouse to complete initial dc planning assessment. CM educated patient on the CM role and verbal consent given by patient to complete assessment. Patient lives at home with her spouse where she was independent with her care. She has been in the hospital and is very weak. She is unsure of what she needs. At discharge patient would like to return home if it is a safe discharge. CM discussed availability of home health, rehab services, and medical equipment. She has a walker and a BSC at home but currently does not need or use it. She has a new ostomy so she will need supplies and education. She will wait to see if she needs rehab. I will send info to [facility] for Ostomy Supplies. CM will continue to follow and will assist as needed with dc plans/needs. DCP REVIEW SUMMARY ANTICIPATED D/C DATE: EXPECTED LOS : CASE STATUS: DCP Initiated INITIAL REVIEW: 09/19/2020 INITIAL REVIEWER: Ivon Izaguirre FINAL DISCHARGE DISPOSITION: : FINAL REVIEWER: FINAL REVIEW DATE: DCP Focus Questions & Answers DCP Screen QUESTION: ANSWER High Risk Factors: : 3 or more ED visits within the last 60 days DCP Evaluation QUESTION: ANSWER Patient and/or caregiver agree upon recommended discharge plan? : Yes Family / Caregiver's ability to cope with chronic illness: : a. Adequate (ability to meet patient's medical needs, ensures patient attends medical appts.) Patient's current cognitive status: : *Oriented to person, place, situation, time and present Patient gives permission to discuss discharge plans with: (name, relationship and number) : SPOUSE Patient's ability to cope with chronic illness : a. Adequate (0-3 ED visits in 6 mos., adequate financial resources, attends scheduled appts.) Alternate discharge plan (if recommended plan not agreed upon by patient and/or caregiver): : INPATIENT REHAB VS HOME HEALTH Does the patient have the ability to pay for or attain post discharge needs / services? : Yes Functional screen assessment: : New onset in weakness or paralysis Family / Caregiver's ability to cope with chronic illness: : a. Adequate (ability to meet patient's medical needs, ensures patient attends medical appts.) Physical Status: : Independent with ADL's Equipment needed for post hospitalization: : Ostomy Supplies Is there a likelihood that the patient will require additional services to return to the preadmission environment? : Yes Functional screen comments: : WEAK, NEW OSTOMY Living Arrangements: : Home with Spouse/Significant Other Other Equipment comments: : WILL ORDER FROM [facility] Results of this evaluation have been discussed with: : Spouse Patient with capacity for self-care or can be cared for in same environment as prior to hospitalization? : No Baseline cognitive status: : *Oriented to person, place, situation, time and present Physical environment modification needed / anticipated for discharge: : No Medication Management: : Patient states can afford medications Planned post hospital services available for patient? : Yes Pharmacy name(s): : [id number] Planned post hospital services covered by insurance plan? : Yes Does Patient have transportation to get home and to follow-up medical appointments when discharged from the hospital? : Yes Would patient like to participate in any Care Coordination programs (if applicable): : Not applicable Does the patient have electricity at home? : Yes Does the patient have running water in their house? : Yes Equipment in use: : Walker - Rolling Equipment in use: : Other Equipment in use: : Bedside Commode Other Equipment comments: : BARS IN BATH Mental health screen: : No mental health history Psychosocial status: : Independent adult (18-64) Abuse/Neglect: : None Resources / Services in place: : None DCP Re-evaluation QUESTION: ANSWER Would patient like to participate in any Care Coordination programs (if applicable): : Not applicable PATIENT: LINDA SEYMOUR ENCOUNTER: [id number] MEDICAL RECORD#: [id number] ADMISSION DATE: 09/19/2020 DISCHARGE DATE: ATTENDING MD: DAVID MANCILLA : AGE: 75 MARITAL STATUS: M DC PLAN ID: [id number] FACILITY: [facility] PRINTED ON: 09/30/20 15:20 CT All edits/amendments must be made on the electronic document DICTATION DATE: 09/30/20 152 MOVIE SHOT CAMERA OPERATOR: THAI 09/30/20 152 RPT#: [id number] DC DATE: STATUS: ADM IN [facility] [address] [place] [address] END OF REPORT
--- NOTE | 2020-09-30 15:25 | NUR ---
PATIENT COLOSTOMY WELL WOUND VAC CHANGED TODAY BY NURSING INSTRUCTORS WELL MYSELF IN ROOM. PATIENT TOLERATED WELL. ALL WE HAD WERE BIG SIZE COLOSTOMY UNABLE TO GET A HOLD OF MATERIALS TO DOUBLE CHECK AND SEE IF SMALLER SIZE AVAILABLE, INSTRUCTOR ABLE TO DOWNSIZE AND CHANGE COLOSTOMY. DAUGHTER AT BEDSIDE, CONTINUE WITH PLAN OF CARE
--- NOTE | 2020-09-30 15:28 | NUR ---
PATIENT HAS WOUND VAC, PATIENT WAS MOD-HIGH MOD TO GET UP TO BEDSIDE. PATIENT STOOD WITH MIN ASST AND WALKED INTO BATHROOM AND SAT ON TOILET WITH MIN ASST USING WALKER. PATIENT STOOD UP AND WALKED AROUND BED TO DOOR THEN TO CHAIR AND SAT DOWN, WITH MIN ASST USING WALKER. WILL CONTINUE TO WALK PATIENT.
[2020-09-30 17:10] LABS: AEROBE ID Final report (())
[2020-09-30 18:40] VITALS: BP 147/69
[2020-09-30 20:00] VITALS: BP 134/86
[2020-10-01] VITALS: BP 150/84
[2020-10-01 04:00] VITALS: BP 148/84
[2020-10-01 06:20] LABS: BASOPHILS 0.2 % (0-2); EOSINOPHILS 1.5 % (0-7); HEMATOCRIT 35.3 % (36.0-48.0); HEMOGLOBIN 11.9 g/dL (12-16); IMMATURE GRANULOCYTES 1.3 % (0-5); LYMPHOCYTE ABS# 0.73 10x3/uL (1.18-3.74); LYMPHOCYTES 6.7 % (15-50); MCHC 33.7 g/dL (31.0-37.0); MCV 88.9 fL (80.0-100.0); MEAN PLATELET VOLUME 9.9 fL (7.4-10.4); MONOCYTES 8.8 % (2-11); NEUTROPHIL ABS# 8.95 10x3/uL (1.56-6.13); NEUTROPHILS 81.5 % (40-80); RBC 3.97 10x6/uL (4.00-5.40); RDW 14.5 % (11.5-14.5)
[2020-10-01 06:23] LABS: PLATELET COUNT 189 10x3/uL (130-400)
[2020-10-01 06:57] LABS: ALBUMIN 1.7 g/dL (3.4-5.0); ALKALINE PHOSPHATASE 46 U/L (30-120); ALT (SGPT) 9 U/L (10-68); BILIRUBIN - TOTAL 0.35 mg/dL (0.2-1.3); CALC OSMOLALITY 271 mosm/kg (275-300); CALCIUM 7.5 mg/dL (8.5-10.1); CARBON DIOXIDE 24.9 mmol/L (21.0-32.0); CHLORIDE - SERUM 103 mmol/L (98-107); CREATININE - SERUM 0.6 mg/dL (0.6-1.3); GLUCOSE 142 mg/dL (74-106); MAGNESIUM - SERUM 2.1 mg/dL (1.8-2.4); PHOSPHOROUS 2.8 mg/dL (2.5-4.9); PROTEIN - SERUM 4.9 g/dL (6.4-8.2); SODIUM 136 mmol/L (136-145); UREA NITROGEN 7 mg/dL (7-18); eGFR NON AFRICAN AMERICAN > 90 mL/min (90-120)
--- NOTE | 2020-10-01 07:09 | NUR ---
Nutrition follow-up: Chart and labs reviewed TPN infusing @ 40 ml/hr; lipids q 48 hours K low; recommend K rider RDN increasing TPN to 60 ml/hr to meet 73-86% of estimated kcal needs; 82-107% estimated protein needs RDN follow-up: 10/02/20
--- NOTE | 2020-10-01 07:59 | NUR ---
PATIENT HAS DAUGHTER AT BEDSIDE, PAIN MANAGED WITH PRESCRIBED PAIN MEDICATION.
[2020-10-01 08:42] VITALS: BP 147/88
--- NOTE | 2020-10-01 10:44 | MORECARE ---
CASE MANAGEMENT DISCHARGE SUMMARY PATIENT: LINDA SEYMOUR UNIT: [id number] ADM DATE: 09/19/20 AGE: 75 : 47 SEX: F ROOM/BED: D.2215 AUTHOR: SUAD,DOC PHYSICIAN: REFERRING PHYSICIAN: CELESTE REILLY MD DATE OF SERVICE: 10/01/20 Case Management Discharge Planning Summary COMMENTS ENTERED DATE: 10/01/20 10:35 CT COMMENT TYPE: Discharge Planning REVIEWER: Ivon RIVERA WITH [employer] HERE THIS AM TO SEE THE PATIENT AND THE WOUND VAC/ OSTOMY DRESSING. [facility] NURSE CONTROL SYSTEMS DRAFTING OFFICER IN ROOM WITH HIM PATIENT CONTINUES TO HAVE AN NGT AND PER [facility] IT IS CLAMPED CM NEEDED MEASSUREMENTS FROM DRESSING CHANGE FOR HOME WOUND VAC AND/OR FOR REHAB. CM TO FOLLOW AND ASSIST ENTERED DATE: 09/30/20 15:17 CT COMMENT TYPE: Discharge Planning REVIEWER: Ivon Izaguirre SPOKE WITH GEORGETTE WITH [facility] ABOUT OSTOMY SUPPLIES HE WILL GET ME INFO TOMORROW SO WE CAN GET THE PATIENT SET UP WITH [facility] PROPER SUPPLIES THAT SHE NEEDS ENTERED DATE: 09/30/20 10:25 CT COMMENT TYPE: Discharge Planning REVIEWER: Ivon Izaguirre SPOKE WITH PATIENT AND DAUGHTER THIS AM ABOUT NEXT LEVEL OF CARE, EXPLAINED TO THEM THAT WE WILL NEED TO SEE WHAT THE OT /ST/PT EVAL STATE ENTERED DATE: 09/29/20 8:22 CT COMMENT TYPE: Discharge Planning REVIEWER: Ivon Izaguirre LATE ENTRY 09/28/20 @ 12:00 CM met with patient and spouse to complete initial dc planning assessment. CM educated patient on the CM role and verbal consent given by patient to complete assessment. Patient lives at home with her spouse where she was independent with her care. She has been in the hospital and is very weak. She is unsure of what she needs. At discharge patient would like to return home if it is a safe discharge. CM discussed availability of home health, rehab services, and medical equipment. She has a walker and a BSC at home but currently does not need or use it. She has a new ostomy so she will need supplies and education. She will wait to see if she needs rehab. I will send info to [employer] for Ostomy Supplies. CM will continue to follow and will assist as needed with dc plans/needs. DCP REVIEW SUMMARY ANTICIPATED D/C DATE: EXPECTED LOS : CASE STATUS: DCP Initiated INITIAL REVIEW: 09/19/2020 INITIAL REVIEWER: Ivon Izaguirre FINAL DISCHARGE DISPOSITION: : FINAL REVIEWER: FINAL REVIEW DATE: DCP Focus Questions & Answers DCP Screen QUESTION: ANSWER High Risk Factors: : 3 or more ED visits within the last 60 days DCP Evaluation QUESTION: ANSWER Patient and/or caregiver agree upon recommended discharge plan? : Yes Family / Caregiver's ability to cope with chronic illness: : a. Adequate (ability to meet patient's medical needs, ensures patient attends medical appts.) Patient's current cognitive status: : *Oriented to person, place, situation, time and present Patient gives permission to discuss discharge plans with: (name, relationship and number) : SPOUSE Patient's ability to cope with chronic illness : a. Adequate (0-3 ED visits in 6 mos., adequate financial resources, attends scheduled appts.) Alternate discharge plan (if recommended plan not agreed upon by patient and/or caregiver): : INPATIENT REHAB VS HOME HEALTH Does the patient have the ability to pay for or attain post discharge needs / services? : Yes Functional screen assessment: : New onset in weakness or paralysis Family / Caregiver's ability to cope with chronic illness: : a. Adequate (ability to meet patient's medical needs, ensures patient attends medical appts.) Physical Status: : Independent with ADL's Equipment needed for post hospitalization: : Ostomy Supplies Is there a likelihood that the patient will require additional services to return to the preadmission environment? : Yes Functional screen comments: : WEAK, NEW OSTOMY Living Arrangements: : Home with Spouse/Significant Other Other Equipment comments: : WILL ORDER FROM [facility] Results of this evaluation have been discussed with: : Spouse Patient with capacity for self-care or can be cared for in same environment as prior to hospitalization? : No Baseline cognitive status: : *Oriented to person, place, situation, time and present Physical environment modification needed / anticipated for discharge: : No Medication Management: : Patient states can afford medications Planned post hospital services available for patient? : Yes Pharmacy name(s): : [facility] [address] Planned post hospital services covered by insurance plan? : Yes Does Patient have transportation to get home and to follow-up medical appointments when discharged from the hospital? : Yes Would patient like to participate in any Care Coordination programs (if applicable): : Not applicable Does the patient have electricity at home? : Yes Does the patient have running water in their house? : Yes Equipment in use: : Walker - Rolling Equipment in use: : Other Equipment in use: : Bedside Commode Other Equipment comments: : BARS IN BATH Mental health screen: : No mental health history Psychosocial status: : Independent adult (18-64) Abuse/Neglect: : None Resources / Services in place: : None DCP Re-evaluation QUESTION: ANSWER Would patient like to participate in any Care Coordination programs (if applicable): : Not applicable PATIENT: LINDA SEYMOUR ENCOUNTER: [id number] MEDICAL RECORD#: [id number] ADMISSION DATE: 09/19/2020 DISCHARGE DATE: ATTENDING MD: DAVID MANCILLA : AGE: 75 MARITAL STATUS: M DC PLAN ID: [id number] FACILITY: [facility] PRINTED ON: 10/01/20 10:44 CT All edits/amendments must be made on the electronic document DICTATION DATE: 10/01/20 1044 DAIRY ASSOCIATE: DM 10/01/20 1044 RPT#: [id number] DC DATE: STATUS: ADM IN [facility] [address] [place] [address] END OF REPORT
[2020-10-01 14:04] VITALS: BP 155/84
--- NOTE | 2020-10-01 15:45 | NUR ---
1500 - RN REPORTED TO PT ROOM TO ASSIST PT WIT BATHROOM NEEDS TO DISCOVER NGT UNSEATED FROM NOSE AND PULLED MOSTLY OUT.
[2020-10-01 16:49] VITALS: BP 134/86
--- NOTE | 2020-10-01 17:19 | NUR ---
OT NOTE: PT REQUIRED TOTAL A WITH MEDICAL EQUIPMENT MANAGEMENT. PT COMPLETED BED MOBILITY TASKS WITH MIN A. PT COMPLETED SUPINE TO SIT WITH MIN A. PT COMPLETED EOB SITTING WITH CGA. PT COMPLETED EOB SITTING WITH SBA. PT COMPLETED ADL MOBILITY WITH RW REQUIRED CGA. PT COMPLETED BUE AROM WITH FUNCTIONAL WALKER MANAGEMENT. PT DID WELL. [phone] THANK YOU,TIMOTHY AUGUSTE
[2020-10-01 20:00] VITALS: BP 160/86
[2020-10-02] VITALS: BP 134/72
[2020-10-02 04:00] VITALS: BP 135/71
[2020-10-02 05:42] LABS: BASOPHILS 0.3 % (0-2); EOSINOPHILS 1.7 % (0-7); HEMATOCRIT 32.7 % (36.0-48.0); HEMOGLOBIN 10.9 g/dL (12-16); IMMATURE GRANULOCYTES 1.1 % (0-5); LYMPHOCYTE ABS# 0.83 10x3/uL (1.18-3.74); LYMPHOCYTES 9.4 % (15-50); MCH 29.8 pg (26.0-34.0); MCHC 33.3 g/dL (31.0-37.0); MCV 89.3 fL (80.0-100.0); MEAN PLATELET VOLUME 10.8 fL (7.4-10.4); MONOCYTES 8.3 % (2-11); NEUTROPHIL ABS# 6.98 10x3/uL (1.56-6.13); NEUTROPHILS 79.2 % (40-80); PLATELET COUNT 215 10x3/uL (130-400); RBC 3.66 10x6/uL (4.00-5.40); RDW 14.4 % (11.5-14.5); WBC 8.8 10x3/uL (4.8-10.8)
[2020-10-02 06:03] LABS: ALBUMIN 1.7 g/dL (3.4-5.0); ALKALINE PHOSPHATASE 48 U/L (30-120); ALT (SGPT) 10 U/L (10-68); BILIRUBIN - TOTAL 0.27 mg/dL (0.2-1.3); CALC OSMOLALITY 274 mosm/kg (275-300); CALCIUM 7.2 mg/dL (8.5-10.1); CARBON DIOXIDE 25.4 mmol/L (21.0-32.0); CHLORIDE - SERUM 104 mmol/L (98-107); CREATININE - SERUM 0.5 mg/dL (0.6-1.3); GLUCOSE 129 mg/dL (74-106); MAGNESIUM - SERUM 2.1 mg/dL (1.8-2.4); POTASSIUM - SERUM 3.2 mmol/L (3.5-5.1); PROTEIN - SERUM 4.4 g/dL (6.4-8.2); SODIUM 137 mmol/L (136-145); eGFR NON AFRICAN AMERICAN > 90 mL/min (90-120)
[2020-10-02 06:11] LABS: PHOSPHOROUS 3.6 mg/dL (2.5-4.9); UREA NITROGEN 9 mg/dL (7-18)
[2020-10-02 07:28] VITALS: BP 148/83
--- NOTE | 2020-10-02 09:00 | NUR ---
RECIEVED BEDSIDE REPORT. DENIES NEEDS AT THIS TIME. BED LOW POSITION, CALL LIGHT IN REACH. WILL CONTINUE TO MONITOR.
[2020-10-02 11:51] VITALS: BP 131/80
--- NOTE | 2020-10-02 13:51 | NUR ---
OT NOTE: PT PERFORMED MUCH BETTER TODAY. NG TUBE HAD BEEN REMOVED ALONG WITH 1 OF HER DRAINAGE BULBS. BED MOB WITH MIN ASSIST; IN ROOM AMBULATION WITH WALKER AND MIN ASSIST; SIMPLE GROOMING TASKS WITH SET UP; AMB WITH WALKER INTO HALLWAY WITH CGA, USE OF WALKER, AND ASSIST WITH EQUIP MGMT. PT REPORTS FEELING MUCH BETTER GETTING UP AND AROUND..HOWEVER, REPORTS THAT SITTING UP IN THE CHAIR IS VERY PAINFUL TO HER INCISION AREA. PT GETTING STRONGER AND TOLERATING INCREASED ACTIVITY. JOSE D PRIETO, OTR/L
--- NOTE | 2020-10-02 14:30 | NUR ---
CALLED [facility] AGAIN ABOUT THE SMALLER COLOSTOMY BAG, SAID THEY WOULD BRING IT UP AT THIS TIME.
--- NOTE | 2020-10-02 14:30 | NUR ---
CALLED [facility] ABOUT PATIENTS COLOSTOMY. FAMILY WORRIED THAT PATIENT COLOSTOMY WILL LEAK OR HAVE PROBLEMS AND WILL NOT HAVE SUPPLIES TO FIX IT. [facility]AL STATED THAT WE NEED TO MAKE SURE THAT WE HAVE 2.5 INCH COLOSTOMY WAFERS INSTEAD OF 4 IN. RICCARDO LEMON CALLED [facility] AND ASKED THEM TO BRING AT LEAST 4 2.5 INCH COLOSTOMY KITS UP TO THE FLOOR. WAITING FOR THEM FOR WOUND CARE AND EDUCATION TO FAMILY.
--- NOTE | 2020-10-02 14:42 | NUR ---
Nutrition Follow-up: NGT removed this AM, no N/V currently. Orders for GARETH drain removal. Tolerated clear liquid diet. Improvement per Sx notes. Plans to continue diet advancement as tolerated (both medically/GI and per PREMISES TECHNICIAN). Diet: Full Liquid (advanced today) PO intake: 360mL of breakfast tray TPN @ 50mL/hr + IVFE 250mL Q48H = 1306kcal and 60gms +BM (ostomy output) Wt: 124# (09/21/20)- no new weight Meds noted: reglan, pepcid, probiotics, abx Labs noted: K 3.4(L), Glu 129(H), alb 1.7(H) Patient meeting estimated energy and protein needs at this time. Continue to advance PO diet as medically feasible/tolerated. Decrease TPN as PO diet advanced/tolerated and adequate PO intake. RD will follow-up 10/05/20.
--- NOTE | 2020-10-02 14:57 | NUR ---
GARETH DRAIN REMOVED PER ORDERS. PATIENT TOLLERATED WELL.
--- NOTE | 2020-10-02 15:30 | NUR ---
SPOKE TO [facility] ABOUT NEEDING THE SMALLER COLOSTOMY BAG. THEY SAID THEY WOULD BRING IT AT THIS TIME.
[2020-10-02 16:03] VITALS: BP 158/86
[2020-10-02 16:09] LABS: AEROBE ID Final report (()); RESULT 1 Lactobacillus casei (())
--- NOTE | 2020-10-02 16:30 | NUR ---
SPOKE WITH RICCARDO LEMON ABOUT DOING WOUND VAC CHANGE AND EDUCATING FAMILY ABOUT WOUND CARE AND COLOSTOMY. WAS TOLD BY [facility] THAT THE FAMILY IS NOT EDUCATED ENOUGH ABOUT WOUND CARE OR COLOSTOMY AND SEEMS LIKE THEY NEED MORE EDUCATION. PEG WITH WOUNDCARE CAME IN THE OTHER DAY AND MET WITH RUPAL LEMON ABOUT WOUND CARE. DO NOT KNOW WHAT WAS DISCUSSED WITH THE FAMILY AT THIS TIME. ASKED RICCARDO TO SPEAK WITH THE FAMILY AND EDUCATE THEM WHILE DOING DRESSING CHANGE.
--- NOTE | 2020-10-02 18:43 | NUR ---
STILL NO COLOSTOMY BAG BROUGHT UP BY [facility]. DRIVER HELPER CALLED TO GET THE COLOSTOMY BAGS BROUGHT UP.
[2020-10-02 21:13] VITALS: BP 125/67
[2020-10-03 00:38] VITALS: BP 116/69
--- NOTE | 2020-10-03 04:11 | NUR ---
ASSESSED AT THE BEGINNING OF THE SHIFT. PT IS ALERT AND ORIENTED, ABLE TO VERBALIZE NEEDS. WAS AT THE BEDSIDE AND PT WAS SLEEPING WITH PAIN MEDS ON BOARD. SHE WAS SUPPOSED TO GET HER WOUND VAC AND COLOSTOMY CHANGED AFTER IT BECAME EFFECTIVE. DUE TO BEGINNING OF SHIFT AND NEED FOR MEDS TO BE PASSED WE PLANNED REMEDICATE HER AT 2200 AND DO IT THEN. WHEN WE DELIVERED HER PAIN MED AT 2200 HER DAUGHTER WAS ASLEEP AT THE BEDSIDE AND STATED THAT SHE AND THE PATIENT HAD TALKED ABOUT IT AND DID NOT WANT TO DO IT TONIGHT BECAUSE SHE WAS JUST TOO TIRED. WE ASKED IF WE COULD DO IT FIRST THING IN THE MORNING AND THE DAUGHTER STATED SHE FELT IT COULD WAIT UNTIL MONDAY WHEN SOMEONE SHE NAMED WAS GOING TO BE HERE. IT WAS LEFT AT THAT AND WILL LET MD TALK TO HER IN THE MORNING. MORNING.
[2020-10-03 05:24] VITALS: BP 137/62
[2020-10-03 07:18] LABS: BASOPHILS 0.7 % (0-2); EOSINOPHILS 3.1 % (0-7); HEMATOCRIT 31.6 % (36.0-48.0); HEMOGLOBIN 10.3 g/dL (12-16); IMMATURE GRANULOCYTES 0.9 % (0-5); LYMPHOCYTES 7.8 % (15-50); MCH 29.5 pg (26.0-34.0); MCHC 32.6 g/dL (31.0-37.0); MCV 90.5 fL (80.0-100.0); MEAN PLATELET VOLUME 10.5 fL (7.4-10.4); MONOCYTES 7.2 % (2-11); NEUTROPHIL ABS# 7.21 10x3/uL (1.56-6.13); NEUTROPHILS 80.3 % (40-80); RBC 3.49 10x6/uL (4.00-5.40); RDW 14.8 % (11.5-14.5)
[2020-10-03 07:25] LABS: PLATELET COUNT 275 10x3/uL (130-400)
[2020-10-03 07:30] LABS: ALBUMIN 1.6 g/dL (3.4-5.0); ALKALINE PHOSPHATASE 67 U/L (30-120); CALC OSMOLALITY 272 mosm/kg (275-300); CALCIUM 7.4 mg/dL (8.5-10.1); CARBON DIOXIDE 25.4 mmol/L (21.0-32.0); CHLORIDE - SERUM 104 mmol/L (98-107); CREATININE - SERUM 0.6 mg/dL (0.6-1.3); GLUCOSE 128 mg/dL (74-106); MAGNESIUM - SERUM 2.1 mg/dL (1.8-2.4); PHOSPHOROUS 3.4 mg/dL (2.5-4.9); POTASSIUM - SERUM 3.4 mmol/L (3.5-5.1); PROTEIN - SERUM 4.8 g/dL (6.4-8.2); SODIUM 136 mmol/L (136-145); UREA NITROGEN 10 mg/dL (7-18); eGFR NON AFRICAN AMERICAN > 90 mL/min (90-120)
--- NOTE | 2020-10-03 07:30 | NUR ---
MONRING ROUNDS WERE MADE, FOUND PATIENT SOAKING WET IN URINE. CLAIMS THE METAL MODEL BUILDER AIDE DIDNT' CHANGE HER LINENS. FULL BED CHANGE AT THIS TIME. DENIES ANY NEEDS. BED IN LOWEST POSITION, BED RAILS X2, CALL LIGHT WITHIN REACH. WILL CONTINUE POC.
[2020-10-03 07:32] LABS: ALT (SGPT) 19 U/L (10-68)
[2020-10-03 09:29] VITALS: BP 127/92
--- NOTE | 2020-10-03 10:18 | NUR ---
AAOX4 UPON ENTERING. ADMINISTERED MEDICATION AND STARTED IV ABX, TOLERATED WELL. PRN NORCO FOR PAIN. SITTING UPRIGHT IN BED. DENIES ANY NEEDS AT THIS TIME. BED IN LOWEST POSITION, BED RAILS X2, CALL LIGHT WITHIN REACH. WILL CONTINUE POC.
--- NOTE | 2020-10-03 11:19 | NUR ---
ATTEMPTING TO REACH SHIRLEY WAGNER FOR PAIN MEDICATION ORDER.
--- NOTE | 2020-10-03 14:14 | NUR ---
PLACED PUREWICK ON PATIENT DUE TO FREQUENCY, URGENCY AND PT REQUEST.
[2020-10-03 14:22] VITALS: BP 137/83
--- NOTE | 2020-10-03 14:33 | NUR ---
ADMINISTERED PRN NORCO FOR PAIN. IV MEDICATION, TOLERATED WELL. FAMILY AT BEDSIDE. DENIES FURTHER NEEDS AT THIS TIME. WILL CONTINUE POC.
--- NOTE | 2020-10-03 15:12 | NUR ---
I have reviewed this patient and I concur with the Shift Assessment completed by the Licensed Practical Nurse today this shift.
--- NOTE | 2020-10-03 18:20 | NUR ---
HUNG LIPIDS PER ORDER, WILL REASSES IN 15-30 MINUTES. FAMILY AT BEDSIDE. DENIES ANY NEEDS AT THIS TIME. BED IN LOWEST POSITION, BED RAILS X2, CALL LIGHT WITHIN REACH. WILL CONTINUE POC.
--- NOTE | 2020-10-03 18:34 | NUR ---
PRN NORCO FOR PAIN. RESTING IN BED, DENIES ANY NEEDS AT THIS TIME. WILL CONTINUE POC.
--- NOTE | 2020-10-03 19:00 | NUR ---
BEDSIDE REPORT RECEIVED AND CARE OF PT ASSUMED. PT LYING IN SUPINE POSITION WITH EYES CLOSED. LEFT SC CENTRAL LINE PATENT WITH NS INFUSING AT 30 ML/HR; TPN INFUSING AT 50 ML/HR; AND LIPIDS INFUSING AT 60 ML/HR. TELEMETRY IN USE PER ORDER AND READING SR AT THIS ASSESSMENT. SCD'S IN USE ON BLE. PUREWICK EXTERNAL CATHETER IN USE WITH YELLOW URINE IN COLLECTION CANNISTER. MIDLINE INCISION WITH WOUND VAC IN PLACE, WELL COMPRESSED WITH NO LEAKAGE ALARMS. WILL MONITOR FOR NEEDS.
--- NOTE | 2020-10-03 19:49 | NUR ---
HS MEDICATIONS GIVEN. WILL CONTINUE TO MONITOR FOR NEEDS.
[2020-10-03 22:27] VITALS: BP 183/83
--- NOTE | 2020-10-04 02:47 | NUR ---
GAVE NORCO PO PER REQUEST FOR PAIN. RE-POSITIONED PT ONTO RIGHT SIDE. WILL MONITOR FOR EFFECTIVENESS. CALL LIGHT WITHIN REACH.
--- NOTE | 2020-10-04 03:45 | NUR ---
CHANGED OUT ALL IV TUBING. STARTED NEW BAG OF TPN WITH NEW TUBING. SWAB CAPS PLACED ON ALL OPEN PORTS. TUBING LABELED FOR NEXT CHANGE DATE.
[2020-10-04 05:33] LABS: EOSINOPHILS 3.4 % (0-7); HEMATOCRIT 32.3 % (36.0-48.0); HEMOGLOBIN 10.5 g/dL (12-16); IMMATURE GRANULOCYTES 0.7 % (0-5); LYMPHOCYTE ABS# 0.83 10x3/uL (1.18-3.74); MCH 29.6 pg (26.0-34.0); MCHC 32.5 g/dL (31.0-37.0); MEAN PLATELET VOLUME 10.5 fL (7.4-10.4); MONOCYTES 7.1 % (2-11); NEUTROPHIL ABS# 6.49 10x3/uL (1.56-6.13); NEUTROPHILS 77.8 % (40-80); PLATELET COUNT 292 10x3/uL (130-400); RBC 3.55 10x6/uL (4.00-5.40); RDW 14.7 % (11.5-14.5); WBC 8.3 10x3/uL (4.8-10.8)
[2020-10-04 05:49] LABS: ALBUMIN 1.7 g/dL (3.4-5.0); ALKALINE PHOSPHATASE 86 U/L (30-120); BILIRUBIN - TOTAL 0.35 mg/dL (0.2-1.3); CALC OSMOLALITY 271 mosm/kg (275-300); CALCIUM 7.6 mg/dL (8.5-10.1); CARBON DIOXIDE 25.9 mmol/L (21.0-32.0); CHLORIDE - SERUM 104 mmol/L (98-107); CREATININE - SERUM 0.6 mg/dL (0.6-1.3); GLUCOSE 115 mg/dL (74-106); MAGNESIUM - SERUM 2.1 mg/dL (1.8-2.4); POTASSIUM - SERUM 3.9 mmol/L (3.5-5.1); PROTEIN - SERUM 5.1 g/dL (6.4-8.2); SODIUM 136 mmol/L (136-145); UREA NITROGEN 10 mg/dL (7-18); eGFR NON AFRICAN AMERICAN > 90 mL/min (90-120)
[2020-10-04 05:50] LABS: ALT (SGPT) 28 U/L (10-68)
[2020-10-04 06:42] VITALS: BP 156/70
--- NOTE | 2020-10-04 08:18 | NUR ---
AAOX4 UPON ENTERING. MORNING MEDICATION GIVEN, NO DIFFICULTIES. PRN NORCO FOR PAIN PER REQUEST. SITUATED PT COMFORTABLY IN BED. DENIES ANY NEEDS AT THIS TIME. BED IN LOWEST POSITION, BED RAILS X2, CALL LIGHT WITHIN REACH. WILL CONTINUE POC.
--- NOTE | 2020-10-04 12:40 | NUR ---
PRN NORCO FOR 4/10 PAIN. TRANSFERRED FROM BEDSIDE CHAIR TO BED, MINIMAL ASSISTANCE. FAMILY AT BEDSIDE. DENIES FURTHER NEEDS. WILL CONTINUE POC.
[2020-10-04 13:51] VITALS: BP 147/85
--- NOTE | 2020-10-04 14:34 | NUR ---
IV MEDICATION GIVEN, TOLERATED WELL. UP ON BEDSIDE, FAMILY IN ROOM. DENIES ANY NEEDS AT THIS TIME. WILL CONTINUE POC.
--- NOTE | 2020-10-04 15:45 | NUR ---
OSMAN PAGED IN RELATION TO QUESTIONS FROM PATIENT AND FAMILY.
--- NOTE | 2020-10-04 17:44 | NUR ---
ADMINISTERED MEDICATION, TOLERATED WELL. SITTING IN BEDSIDE CHAIR, FAMILY IN ROOM. CHANGED BED LINENS. DENIES FURTHER NEEDS AT THIS TIME. WILL CONTINUE POC.
[2020-10-04 18:20] VITALS: BP 142/91
--- NOTE | 2020-10-04 18:51 | NUR ---
PRN NORCO FOR PAIN AT INCISION SITE. UPRIGHT IN BED, DENIES ANY FURTHER NEEDS AT THIS TIME. WILL CONTINUE POC.
--- NOTE | 2020-10-04 19:00 | NUR ---
BEDSIDE REPORT RECEIVED AND CARE OF PT ASSUMED. PT LYING IN LOW MIX'S POSITION TALKING ON THE PHONE. LEFT SC CENTRAL LINE PATENT. WOUND VAC ON MIDLINE ABDOMINAL INCISION WELL COMPRESSED WITH NO LEAKAGE ALARMS. OSTOMY PATENT, WITH PINK STOMA, AND SMALL AMOUNT OF LIQUID STOOL IN COLLECTION BAG. PUREWICK EXTERNAL CATHETER IN USE WITH YELLOW URINE IN COLLECTION CANNISTER. WILL MONITOR FOR NEEDS.
--- NOTE | 2020-10-04 20:22 | NUR ---
HS MEDICATIONS GIVEN. WILL CONTINUE TO MONITOR FOR NEEDS.
--- NOTE | 2020-10-04 20:30 | NUR ---
PT DRANK ENSURE FOR HS SNACK.
[2020-10-04 22:06] VITALS: BP 147/91
[2020-10-05 00:20] VITALS: BP 141/83
--- NOTE | 2020-10-05 03:30 | NUR ---
GOT PT UP TO CHAIR AND PERFORMED BATH AND USED SHAMPOO CAP ON HAIR. ALL LINENS AND GOWN CHANGED. NEW GRIPPER SOCKS PLACED, AND TELEMETRY RE-PLACED WITH NEW PADS. POSITIONED FOR COMFORT WITH WARMED BLANKET. CALL LIGHT WITHIN REACH.
--- NOTE | 2020-10-05 03:40 | NUR ---
PT HAS SOME REDNESS IN ADRYAN AREA / LABIA. APPLIED JIMI'S TO AREA PRIOR TO REPLACING PUREWICK EXTERNAL CATHETER. EMPTIED 150 ML LIQUID STOOL FROM OSTOMY BAG.
[2020-10-05 07:00] LABS: BASOPHILS 0.7 % (0-2); EOSINOPHILS 0.9 % (0-7); HEMATOCRIT 32.4 % (36.0-48.0); HEMOGLOBIN 10.6 g/dL (12-16); IMMATURE GRANULOCYTES 0.5 % (0-5); LYMPHOCYTE ABS# 0.69 10x3/uL (1.18-3.74); LYMPHOCYTES 7.4 % (15-50); MCH 29.8 pg (26.0-34.0); MCHC 32.7 g/dL (31.0-37.0); MEAN PLATELET VOLUME 10.5 fL (7.4-10.4); MONOCYTES 6.7 % (2-11); NEUTROPHIL ABS# 7.85 10x3/uL (1.56-6.13); NEUTROPHILS 83.8 % (40-80); PLATELET COUNT 349 10x3/uL (130-400); RBC 3.56 10x6/uL (4.00-5.40); RDW 14.6 % (11.5-14.5); WBC 9.4 10x3/uL (4.8-10.8)
--- NOTE | 2020-10-05 07:00 | NUR ---
RECIEVED BEDSIDE REPORT. AWAKE, BED LOW POSITION, CALL LIGHT IN REACH. FREE FROM SIGNS OF DISTRESS. WILL CONTINUE TO MONITOR.
[2020-10-05 07:27] LABS: ALBUMIN 1.9 g/dL (3.4-5.0); ALKALINE PHOSPHATASE 99 U/L (30-120); ALT (SGPT) 27 U/L (10-68); BILIRUBIN - TOTAL 0.27 mg/dL (0.2-1.3); CALC OSMOLALITY 270 mosm/kg (275-300); CALCIUM 7.9 mg/dL (8.5-10.1); CARBON DIOXIDE 24.5 mmol/L (21.0-32.0); CHLORIDE - SERUM 101 mmol/L (98-107); CREATININE - SERUM 0.6 mg/dL (0.6-1.3); GLUCOSE 135 mg/dL (74-106); MAGNESIUM - SERUM 2.1 mg/dL (1.8-2.4); PHOSPHOROUS 4.1 mg/dL (2.5-4.9); POTASSIUM - SERUM 3.8 mmol/L (3.5-5.1); PROTEIN - SERUM 5.6 g/dL (6.4-8.2); SODIUM 134 mmol/L (136-145); eGFR NON AFRICAN AMERICAN > 90 mL/min (90-120)
[2020-10-05 07:28] LABS: UREA NITROGEN 14 mg/dL (7-18)
--- NOTE | 2020-10-05 07:59 | NUR ---
MIGUEL ON UNIT TO ASSIST IN WOUND VAC CHANGE. INCISION SITE BEEFY RED, FREE FROM SIGNS OF INFECTION, MINIMAL DRAINAGE NOTED. NEW WOUND VAC PLACED, USED PASTE TO CREATE BARRIER ON LEFT SIDE. FREE FROM SIGNS OF AIR LEAKS. COLOSTOMY BAG CHANGED WELL. STOMA PINK, WITH STOOL DRAINAGE PRESENT. STOMA PASTE USED TO HELP SECURE COLOSTOMY WAFER AND BAG. SITE FREE FROM SIGNS OF INFECTION. PATIENT TOLLERATED WELL. DAUGHTER IN ROOM NOW. EXPLAINED WHAT WE DID DURING THE DRESSING CHANGE AND NO FURTHER QUESTIONS AT THIS TIME.
[2020-10-05 08:43] VITALS: BP 112/80
--- NOTE | 2020-10-05 12:40 | OP ---
PATIENT NAME: LINDA SEYMOUR MEDICAL RECORD: [id number] :49 LOCATION:[id number] ADMISSION DATE:09/19/20 SURGEON: EDDIE WILDE MD DATE OF OPERATION: 09/22/2020 PREOPERATIVE DIAGNOSES: 1. Diverticular abscess. 2. Factor V Leiden deficiency. POSTOPERATIVE DIAGNOSES: 1. Diverticular abscess. 2. Factor V Leiden deficiency. PROCEDURES: 1. Left subclavian vein triple-lumen central venous line placement. 2. Diagnostic laparoscopy with drainage of pelvic abscess. SURGEON: Eddie Wilde MD. REPORT OF PROCEDURE: The patient's left chest was prepped and draped in sterile fashion. A needle was used to cannulate the left subclavian vein and a guidewire was advanced with ease. Over this wire, a dilator was placed, followed by the triple-lumen catheter. The catheter aspirated nonpulsatile dark blood and flushed easily in all 3 ports. This was sutured into place with 3-0 nylon and dressed appropriately. The patient's abdomen was then prepped and draped in sterile fashion. A Veress needle was inserted in the left subcostal region and the abdomen was insufflated. A 5-mm Visiport trocar was inserted in the midline just above the umbilicus. I could see the Veress needle and there was no sign of any injury to bowel or surrounding structures. Another 5-mm trocar was placed in the right lateral abdomen and a final 5-mm trocar was placed in the left lower quadrant. The patient had a lot of inflammatory adhesions that were present and these were teased down carefully with blunt dissection. All of these adhesions came down easily. This was mainly of small bowel upon itself and to the abdominal wall. As we got down towards the pelvis, I was able to find the dome of the uterus and we followed inferiorly and I was able to dissect out down towards the pelvis where there was some inflammatory fluid. On the right ovary, there was an abscess pocket noted to be surrounding the ovary itself. When I punctured into this abscess pocket, there was purulent fluid, which was encountered and this was cultured and sent for specimen. We were able to get rid of all of this fluid and eventually free up the entire right ovary. Dr. Griffin with DATA SECURITY COORDINATOR was able to come in and evaluate the bilateral ovaries and saw a small cyst on either side. Everything otherwise looked normal from a gynecologic standpoint. We irrigated out the pelvis and right lower quadrant thoroughly and made sure there was no sign of any further abscess pockets. Once this was done, then a 15-Ethiopian round Ritesh drain was inserted through the left lower quadrant port and left in place in the space underneath the uterus and the right ovary with this extended out to the right pericolic gutter as well. We then sutured this into place with a 3-0 nylon. The ports and insufflation were then removed. The skin incisions were infused with 10 mL of 0.25% Marcaine with epinephrine and then closed with subcutaneous 5-0 Monocryl. COMPLICATIONS: None. CONDITION: Stable. OPERATIVE REPORT [id number] LINDA SEYMOUR ANESTHESIA: General endotracheal and local. BLOOD LOSS: Minimal. TRANSINT:[id number] Voice Confirmation ID: [id number] DOCUMENT ID: [id number] EDDIE WILDE MD at 1240 CC: [id number] DICTATION DATE: 09/22/20 1452 POWDER NIPPER: 09/23/20 0022 ADM IN [facility] [address] [id number]
[2020-10-05 14:19] VITALS: BP 129/73
--- NOTE | 2020-10-05 14:39 | NUR ---
Nutrition Follow-up: Patient to transfer to rehab soon. Diet: Regular GI soft (diet advanced today) patient previously on full liquid diet. Spoke with patient's daughter who states that patient has been eating well on the full liquid diet. States that patient is hungry and is wanting real food to eat. Dtr also states that surgery TOBACCO STRIPPING MACHINE OPERATOR told her that the plan is to discontinue TPN. Patient was not currently hooked up to TPN at time of RD visit. Last BM: 10/02/20 Wt: 124# (09/21/20) Meds noted: reglan, pepcid, probiotics Labs noted: Na 134(L), Glu 135(H), alb 1.9(L) Recommend continue with advanced diet as tolerated. Offer oral nutrition supplements if PO intake <65% average. Encourage PO intake at meal times. RD will follow-up for nutrition re-assessment on 10/07/20.
[2020-10-05 17:30] VITALS: BP 148/78
--- NOTE | 2020-10-05 17:55 | NUR ---
OT NOTE: PT IMPROVING WITH BED MOB AND TRANSFERS.. REQUIRES MIN ASSIST AND ASSIST WITH WOUND VAC MGMT. PT IS AMBULATING WITH PHYS THERAPY, HOWEVER, CONTINUES TO REQUIRE ASSIST WITH ADLS. SHE REQUIRES ASSIST WITH TOILET TRANSFERS, TOILETING, SHOWER TRANSFER, BATHING, AND LE DRESSING. SHE IS TOLERATING BEING UP IN CHAIR FOR INCREASED AMOUNTS OF TIME, BUT STILL VERY WEAK.. RECOMMEND IP REHAB IN ORDER FOR PT TO RETURN TO PLOF JOSE D PRIETO OTR/L
[2020-10-06] VITALS: BP 129/75
[2020-10-06 04:00] VITALS: BP 131/65
[2020-10-06 06:19] LABS: EOSINOPHILS 3.4 % (0-7); HEMATOCRIT 32.1 % (36.0-48.0); HEMOGLOBIN 10.4 g/dL (12-16); IMMATURE GRANULOCYTES 0.4 % (0-5); LYMPHOCYTES 10.1 % (15-50); MCH 29.5 pg (26.0-34.0); MCHC 32.4 g/dL (31.0-37.0); MCV 91.2 fL (80.0-100.0); MEAN PLATELET VOLUME 10.8 fL (7.4-10.4); NEUTROPHIL ABS# 7.86 10x3/uL (1.56-6.13); NEUTROPHILS 79.1 % (40-80); PLATELET COUNT 344 10x3/uL (130-400); RBC 3.52 10x6/uL (4.00-5.40); RDW 14.8 % (11.5-14.5); WBC 9.9 10x3/uL (4.8-10.8)
[2020-10-06 06:51] LABS: ALKALINE PHOSPHATASE 120 U/L (30-120); ALT (SGPT) 42 U/L (10-68); BILIRUBIN - TOTAL 0.27 mg/dL (0.2-1.3); CALC OSMOLALITY 272 mosm/kg (275-300); CARBON DIOXIDE 23.2 mmol/L (21.0-32.0); CHLORIDE - SERUM 104 mmol/L (98-107); CREATININE - SERUM 0.6 mg/dL (0.6-1.3); GLUCOSE 95 mg/dL (74-106); POTASSIUM - SERUM 4.3 mmol/L (3.5-5.1); PROTEIN - SERUM 5.6 g/dL (6.4-8.2); SODIUM 137 mmol/L (136-145); UREA NITROGEN 11 mg/dL (7-18); eGFR NON AFRICAN AMERICAN > 90 mL/min (90-120)
--- NOTE | 2020-10-06 07:32 | NUR ---
RECIEVED BEDSIDE REPORT. IN BED AWAKE AND ALERT. DAUGHTER AT BEDSIDE. DENIES NEEDS AT THIS TIME. BED LOW POSITION. CALL LIGHT IN REACH. WILL CONTINUE TO MONITOR.
--- NOTE | 2020-10-06 07:40 | NUR ---
PATIENT HAD PAIN MANAGED WITH THE PRESCRIBED PAIN MEDICATION, SHE APPEARED TO REST WELL, DAUGHTER AT BEDSIDE.
--- NOTE | 2020-10-06 09:28 | MORECARE ---
CASE MANAGEMENT DISCHARGE SUMMARY PATIENT: LINDA SEYMOUR UNIT: [id number] ADM DATE: 09/19/20 AGE: 75 : 47 SEX: F ROOM/BED: D.2215 AUTHOR: SUAD,DOC PHYSICIAN: REFERRING PHYSICIAN: CELESTE REILLY MD DATE OF SERVICE: 10/06/20 Case Management Discharge Planning Summary COMMENTS ENTERED DATE: 10/06/20 9:20 CT COMMENT TYPE: Discharge Planning REVIEWER: Ivon Zina PATIENT IS TOO HIGH FUNCTION FOR INPATIENT REHAB AT [facility], THE FAMILY WOULD LIKE TO GO HOME WITH HOME HEALTH. SHE WILL NEED A HOME WOUND VAC ( I AM WAITING ON MEASURMENTS ) FOR [facility] AND I HAVE SENT A REFERRAL TO [facility] FOR HOME HEALTH. PER JAMISON INGRAM APN, SHE HAS SPOKEN WITH [facility] ABOUT EDUCATION WITH HER NEW OSTOMY & THEY WILL PROVIDE ONE ON ONE EDUCATION AT HOME WITH HER CM TO FOLLOW AND ASSIST WITH DC PLANNING ENTERED DATE: 10/01/20 10:35 CT COMMENT TYPE: Discharge Planning REVIEWER: Ivon Izaguirre MIGUEL WITH [facility] HERE THIS AM TO SEE THE PATIENT AND THE WOUND VAC/ OSTOMY DRESSING. RUPAL NURSE PROCESS CONTROL BOARD OPERATOR IN ROOM WITH HIM PATIENT CONTINUES TO HAVE AN NGT AND PER RUPAL IT IS CLAMPED CM NEEDED MEASSUREMENTS FROM [facility] FOR HOME WOUND VAC AND/OR FOR REHAB. CM TO FOLLOW AND ASSIST ENTERED DATE: 09/30/20 15:17 CT COMMENT TYPE: Discharge Planning REVIEWER: Ivon Izaguirre SPOKE WITH GEORGETTE WITH [facility] ABOUT OSTOMY SUPPLIES HE WILL GET ME INFO TOMORROW SO WE CAN GET THE PATIENT SET UP WITH [facility] PROPER SUPPLIES THAT SHE NEEDS ENTERED DATE: 09/30/20 10:25 CT COMMENT TYPE: Discharge Planning REVIEWER: Ivon Izaguirre SPOKE WITH PATIENT AND DAUGHTER THIS AM ABOUT NEXT LEVEL OF CARE, EXPLAINED TO THEM THAT WE WILL NEED TO SEE WHAT THE OT /ST/PT EVAL STATE ENTERED DATE: 09/29/20 8:22 CT COMMENT TYPE: Discharge Planning REVIEWER: Ivon Izaguirre LATE ENTRY 09/28/20 @ 12:00 CM met with patient and spouse to complete initial dc planning assessment. CM educated patient on the CM role and verbal consent given by patient to complete assessment. Patient lives at home with her spouse where she was independent with her care. She has been in the hospital and is very weak. She is unsure of what she needs. At discharge patient would like to return home if it is a safe discharge. CM discussed availability of home health, rehab services, and medical equipment. She has a walker and a BSC at home but currently does not need or use it. She has a new ostomy so she will need supplies and education. She will wait to see if she needs rehab. I will send info to [place] for Ostomy Supplies. CM will continue to follow and will assist as needed with dc plans/needs. DCP REVIEW SUMMARY ANTICIPATED D/C DATE: EXPECTED LOS : CASE STATUS: DCP Initiated INITIAL REVIEW: 09/19/2020 INITIAL REVIEWER: Ivon Izaguirre FINAL DISCHARGE DISPOSITION: : FINAL REVIEWER: FINAL REVIEW DATE: DCP Focus Questions & Answers DCP Screen QUESTION: ANSWER High Risk Factors: : 3 or more ED visits within the last 60 days DCP Evaluation QUESTION: ANSWER Patient and/or caregiver agree upon recommended discharge plan? : Yes Family / Caregiver's ability to cope with chronic illness: : a. Adequate (ability to meet patient's medical needs, ensures patient attends medical appts.) Patient's current cognitive status: : *Oriented to person, place, situation, time and present Patient gives permission to discuss discharge plans with: (name, relationship and number) : SPOUSE Patient's ability to cope with chronic illness : a. Adequate (0-3 ED visits in 6 mos., adequate financial resources, attends scheduled appts.) Alternate discharge plan (if recommended plan not agreed upon by patient and/or caregiver): : INPATIENT REHAB VS HOME HEALTH Does the patient have the ability to pay for or attain post discharge needs / services? : Yes Functional screen assessment: : New onset in weakness or paralysis Family / Caregiver's ability to cope with chronic illness: : a. Adequate (ability to meet patient's medical needs, ensures patient attends medical appts.) Physical Status: : Independent with ADL's Equipment needed for post hospitalization: : Ostomy Supplies Is there a likelihood that the patient will require additional services to return to the preadmission environment? : Yes Functional screen comments: : WEAK, NEW OSTOMY Living Arrangements: : Home with Spouse/Significant Other Other Equipment comments: : WILL ORDER FROM [facility] Results of this evaluation have been discussed with: : Spouse Patient with capacity for self-care or can be cared for in same environment as prior to hospitalization? : No Baseline cognitive status: : *Oriented to person, place, situation, time and present Physical environment modification needed / anticipated for discharge: : No Medication Management: : Patient states can afford medications Planned post hospital services available for patient? : Yes Pharmacy name(s): : [facility] [address] Planned post hospital services covered by insurance plan? : Yes Does Patient have transportation to get home and to follow-up medical appointments when discharged from the hospital? : Yes Would patient like to participate in any Care Coordination programs (if applicable): : Not applicable Does the patient have electricity at home? : Yes Does the patient have running water in their house? : Yes Equipment in use: : Walker - Rolling Equipment in use: : Other Equipment in use: : Bedside Commode Other Equipment comments: : BARS IN BATH Mental health screen: : No mental health history Psychosocial status: : Independent adult (18-64) Abuse/Neglect: : None Resources / Services in place: : None DCP Re-evaluation QUESTION: ANSWER Would patient like to participate in any Care Coordination programs (if applicable): : Not applicable PATIENT: LINDA SEYMOUR ENCOUNTER: [id number] MEDICAL RECORD#: [id number] ADMISSION DATE: 09/19/2020 DISCHARGE DATE: ATTENDING MD: DAVID MANCILLA : AGE: 75 MARITAL STATUS: M DC PLAN ID: [id number] FACILITY: [facility] PRINTED ON: 10/06/20 9:28 CT All edits/amendments must be made on the electronic document DICTATION DATE: 10/06/20927 OREMAN: THAI 10/06/20927 RPT#: [id number] DC DATE: STATUS: ADM IN [facility] [address] [place] [address] END OF REPORT
[2020-10-06 10:12] LABS: AMPHOTERICIN B MIC 0.5 ug/mL (())
[2020-10-06 10:47] VITALS: BP 138/82
[2020-10-06] MEDS ORDERED: HYDROCODON-ACE1 EAC7 PO (12:55)
[2020-10-06] MEDS ORDERED: PENICILLIN VK250 MG PO (13:26)
[2020-10-06 14:00] VITALS: BP 127/81
--- NOTE | 2020-10-06 14:19 | MORECARE ---
CASE MANAGEMENT DISCHARGE SUMMARY PATIENT: LINDA SEYMOUR UNIT: [id number] ADM DATE: 09/19/20 AGE: 75 : 47 SEX: F ROOM/BED: D.2215 AUTHOR: SUAD,DOC PHYSICIAN: REFERRING PHYSICIAN: CELESTE REILLY MD DATE OF SERVICE: 10/06/20 Case Management Discharge Planning Summary COMMENTS ENTERED DATE: 10/06/20 14:11 CT COMMENT TYPE: Discharge Planning REVIEWER: Ivon Izaguirre I HAVE FAXED THE CLINICAL TO [facility] TO [facility] ENTERED DATE: 10/06/20 9:20 CT COMMENT TYPE: Discharge Planning REVIEWER: Ivon Zina PATIENT IS TOO HIGH FUNCTION FOR INPATIENT REHAB AT [facility], THE FAMILY WOULD LIKE TO GO HOME WITH HOME HEALTH. SHE WILL NEED A HOME WOUND VAC ( I AM WAITING ON MEASURMENTS ) FOR [facility] AND I HAVE SENT A REFERRAL TO [facility] FOR HOME HEALTH. PER JAMISON INGRAM APN, SHE HAS SPOKEN WITH [facility] ABOUT EDUCATION WITH HER NEW OSTOMY & THEY WILL PROVIDE ONE ON ONE EDUCATION AT HOME WITH HER CM TO FOLLOW AND ASSIST WITH DC PLANNING ENTERED DATE: 10/01/20 10:35 CT COMMENT TYPE: Discharge Planning REVIEWER: Ivon RIVERA WITH [facility] HERE THIS AM TO SEE THE PATIENT AND THE WOUND VAC/ OSTOMY DRESSING. RUPAL NURSE ONCOLOGY NURSE IN ROOM WITH HIM PATIENT CONTINUES TO HAVE AN NGT AND PER RUPAL IT IS CLAMPED CM NEEDED MEASSUREMENTS FROM [facility] FOR HOME WOUND VAC AND/OR FOR REHAB. CM TO FOLLOW AND ASSIST ENTERED DATE: 09/30/20 15:17 CT COMMENT TYPE: Discharge Planning REVIEWER: Ivon Izaguirre SPOKE WITH GEORGETTE WITH [facility] ABOUT OSTOMY SUPPLIES HE WILL GET ME INFO TOMORROW SO WE CAN GET THE PATIENT SET UP WITH [facility] PROPER SUPPLIES THAT SHE NEEDS ENTERED DATE: 09/30/20 10:25 CT COMMENT TYPE: Discharge Planning REVIEWER: Ivon Izaguirre SPOKE WITH PATIENT AND DAUGHTER THIS AM ABOUT NEXT LEVEL OF CARE, EXPLAINED TO THEM THAT WE WILL NEED TO SEE WHAT THE OT /ST/PT EVAL STATE ENTERED DATE: 09/29/20 8:22 CT COMMENT TYPE: Discharge Planning REVIEWER: Ivon Izaguirre LATE ENTRY 09/28/20 @ 12:00 CM met with patient and spouse to complete initial dc planning assessment. CM educated patient on the CM role and verbal consent given by patient to complete assessment. Patient lives at home with her spouse where she was independent with her care. She has been in the hospital and is very weak. She is unsure of what she needs. At discharge patient would like to return home if it is a safe discharge. CM discussed availability of home health, rehab services, and medical equipment. She has a walker and a BSC at home but currently does not need or use it. She has a new ostomy so she will need supplies and education. She will wait to see if she needs rehab. I will send info to [place] for Ostomy Supplies. CM will continue to follow and will assist as needed with dc plans/needs. DCP REVIEW SUMMARY ANTICIPATED D/C DATE: EXPECTED LOS : CASE STATUS: DCP Initiated INITIAL REVIEW: 09/19/2020 INITIAL REVIEWER: Ivon Izaguirre FINAL DISCHARGE DISPOSITION: : FINAL REVIEWER: FINAL REVIEW DATE: DCP Focus Questions & Answers DCP Screen QUESTION: ANSWER High Risk Factors: : 3 or more ED visits within the last 60 days DCP Evaluation QUESTION: ANSWER Patient and/or caregiver agree upon recommended discharge plan? : Yes Family / Caregiver's ability to cope with chronic illness: : a. Adequate (ability to meet patient's medical needs, ensures patient attends medical appts.) Patient's current cognitive status: : *Oriented to person, place, situation, time and present Patient gives permission to discuss discharge plans with: (name, relationship and number) : SPOUSE Patient's ability to cope with chronic illness : a. Adequate (0-3 ED visits in 6 mos., adequate financial resources, attends scheduled appts.) Alternate discharge plan (if recommended plan not agreed upon by patient and/or caregiver): : INPATIENT REHAB VS HOME HEALTH Does the patient have the ability to pay for or attain post discharge needs / services? : Yes Functional screen assessment: : New onset in weakness or paralysis Family / Caregiver's ability to cope with chronic illness: : a. Adequate (ability to meet patient's medical needs, ensures patient attends medical appts.) Physical Status: : Independent with ADL's Equipment needed for post hospitalization: : Ostomy Supplies Is there a likelihood that the patient will require additional services to return to the preadmission environment? : Yes Functional screen comments: : WEAK, NEW OSTOMY Living Arrangements: : Home with Spouse/Significant Other Other Equipment comments: : WILL ORDER FROM [facility] Results of this evaluation have been discussed with: : Spouse Patient with capacity for self-care or can be cared for in same environment as prior to hospitalization? : No Baseline cognitive status: : *Oriented to person, place, situation, time and present Physical environment modification needed / anticipated for discharge: : No Medication Management: : Patient states can afford medications Planned post hospital services available for patient? : Yes Pharmacy name(s): : [facility] Planned post hospital services covered by insurance plan? : Yes Does Patient have transportation to get home and to follow-up medical appointments when discharged from the hospital? : Yes Would patient like to participate in any Care Coordination programs (if applicable): : Not applicable Does the patient have electricity at home? : Yes Does the patient have running water in their house? : Yes Equipment in use: : Walker - Rolling Equipment in use: : Other Equipment in use: : Bedside Commode Other Equipment comments: : BARS IN BATH Mental health screen: : No mental health history Psychosocial status: : Independent adult (18-64) Abuse/Neglect: : None Resources / Services in place: : None DCP Re-evaluation QUESTION: ANSWER Would patient like to participate in any Care Coordination programs (if applicable): : Not applicable PATIENT: LINDA SEYMOUR ENCOUNTER: [id number] MEDICAL RECORD#: [id number] ADMISSION DATE: 09/19/2020 DISCHARGE DATE: ATTENDING MD: DAVID MACNILLA : AGE: 75 MARITAL STATUS: M DC PLAN ID: [id number] FACILITY: [facility] PRINTED ON: 10/06/20 14:19 CT All edits/amendments must be made on the electronic document DICTATION DATE: 10/06/201418 STERILE PROCESS COORDINATOR: DM 10/06/201418 RPT#: [id number] DC DATE: STATUS: ADM IN [facility] [address] [place] [address] END OF REPORT
--- NOTE | 2020-10-06 14:49 | NUR ---
IN BED, DENIES NEEDS AT THIS TIME. FAMILY MEMBER IN THE ROOM AT BEDSIDE. IV INFUSING PER MAR. TELEMETRY DISCONTINUED. WILL CONTINUE TO MONITOR.
--- NOTE | 2020-10-06 16:46 | NUR ---
OT NOTE: PT REQUIRED TOTAL A WITH MEDICAL EQUIPMENT MANAGEMENT. PT COMPLETED SIT TO STAND WITH SBA-CGA. PT COMPLETED ADL MOB WITH RW REQUIRED CGA. PT COMPLETED SITTING BALANCE WITH SBA. PT COMPLETED BUE AROM WITH FUNCTIONAL WALKER MANAGEMENT . PT DID WELL. [id number] ROSEANNE MORENO COTA
[2020-10-06 17:29] VITALS: BP 129/79
[2020-10-06 20:00] VITALS: BP 123/72
[2020-10-07] VITALS: BP 125/78
[2020-10-07 04:00] VITALS: BP 136/78
--- NOTE | 2020-10-07 04:05 | NUR ---
PATIENT HAD PAIN MANAGED WITH THE PRESCRIBED PAIN MEDICATION, SHE APPEARED TO REST WELL THROUGH THE NIGHT, SHE IS CURRENTLY RESTING IN BED WITH HER EYES CLOSED.
[2020-10-07 07:09] LABS: BASOPHILS 1.1 % (0-2); EOSINOPHILS 4.3 % (0-7); HEMATOCRIT 31.9 % (36.0-48.0); HEMOGLOBIN 10.3 g/dL (12-16); IMMATURE GRANULOCYTES 0.4 % (0-5); LYMPHOCYTE ABS# 0.91 10x3/uL (1.18-3.74); LYMPHOCYTES 9.7 % (15-50); MCH 29.5 pg (26.0-34.0); MCHC 32.3 g/dL (31.0-37.0); MCV 91.4 fL (80.0-100.0); MEAN PLATELET VOLUME 10.2 fL (7.4-10.4); MONOCYTES 8.2 % (2-11); NEUTROPHIL ABS# 7.14 10x3/uL (1.56-6.13); NEUTROPHILS 76.3 % (40-80); PLATELET COUNT 381 10x3/uL (130-400); RBC 3.49 10x6/uL (4.00-5.40); RDW 14.7 % (11.5-14.5); WBC 9.4 10x3/uL (4.8-10.8)
--- NOTE | 2020-10-07 07:43 | NUR ---
ALERT AND ORIENTED. ASSESSMENT COMPLETE. DENIES NEEDS. BED LOW. CALL HERNANDEZ AND PERSONAL ITEMS IN REACH. WILL CONTINUE TO MONITOR.
[2020-10-07 07:49] LABS: ALBUMIN 2.1 g/dL (3.4-5.0); ALKALINE PHOSPHATASE 111 U/L (30-120); ALT (SGPT) 32 U/L (10-68); BILIRUBIN - TOTAL 0.37 mg/dL (0.2-1.3); CALC OSMOLALITY 267 mosm/kg (275-300); CALCIUM 8.1 mg/dL (8.5-10.1); CARBON DIOXIDE 21.3 mmol/L (21.0-32.0); CHLORIDE - SERUM 102 mmol/L (98-107); CREATININE - SERUM 0.6 mg/dL (0.6-1.3); GLUCOSE 95 mg/dL (74-106); POTASSIUM - SERUM 3.9 mmol/L (3.5-5.1); PROTEIN - SERUM 5.8 g/dL (6.4-8.2); SODIUM 134 mmol/L (136-145); UREA NITROGEN 12 mg/dL (7-18); eGFR NON AFRICAN AMERICAN > 90 mL/min (90-120)
[2020-10-07 08:47] VITALS: BP 116/85
--- NOTE | 2020-10-07 11:03 | NUR ---
Nutrition Follow-up/Consult: Diet: Regular GI Soft PO intake: ~50%, daughter states that patient is tolerating diet well Received nutrition consult to discuss diet with patient for discharge. Patient was in shower at time of visit. Spoke with patient's daughter who is actually who requested the consult. Discussed New Colostomy MNT: -GI Soft foods and tender cuts of meats -Chewing foods very well before swallowing -Small frequent meals -Low fiber (</=13gms/day) for first couple of weeks to prevent blockage -Food to help thicken stools -Lower odor foods -Foods to avoid to decrease gas -Chewable MVI, NO GUMMY MVI Thank you for nutrition consult. Lianet Ibrahim, MS, RD, LD
[2020-10-07 12:25] VITALS: BP 108/72
[2020-10-07 13:12] LABS: AMPHOTERICIN B MIC 1.0 ug/mL (())
--- NOTE | 2020-10-07 14:40 | MORECARE ---
CASE MANAGEMENT DISCHARGE SUMMARY PATIENT: LIDNA SEYMOUR UNIT: [id number] ADM DATE: 09/19/20 AGE: 75 : 47 SEX: F ROOM/BED: D.2215 AUTHOR: SUAD,DOC PHYSICIAN: REFERRING PHYSICIAN: CELESTE REILLY MD DATE OF SERVICE: 10/07/20 Case Management Discharge Planning Summary COMMENTS ENTERED DATE: 10/07/20 14:25 CT COMMENT TYPE: Discharge Planning REVIEWER: Ivon Izaguirre PATIENT WILL BE DISCHARING HOME TODAY WITH [employer] [facility], A [employer] WOUND VAC, AND OSTOMY SUPPLIES. I HAVE ORDERED ALL OF HER SUPPLIES THROUGH [employer]. THEY WILL BE DELIVERED TO HER HOME. I HAVE WENT OVER AT LENGTH WITH THE PATIENT, DAUGHTER, AND SPOUSE. [facility] WILL SEE HER ON MONDAY THESE ARE THE SUPPLIES THAT WERE ORDERED PATIENTS ACCOUNT # IS [id number] WITH [employer] WAFER #[id number] ( 20 EACH) TRANSPARENT BAG # [id number] (20 EACH) DEODORANT #[id number] OSTOMY POWDER ( [employer]) #[id number] PROTECTIVE SPRAY ( COV[employer] BRAND) #[id number] MILDABLE RINGS ( JER[employer]) #8805 COLOPLAST CURVED BARRIER STRIP #[id number] ADHESIVE WIPE REMOVER ( [employer] ) # [id number] IMM SERVED AND EXPLAINED WITH DAUGHTER AND JOAO ALSO SIGNED. CM TO FOLLOW AND ASSIST WITH DC PLANNING NEEDED ENTERED DATE: 10/06/20 14:11 CT COMMENT TYPE: Discharge Planning REVIEWER: Ivon Izaguirre I HAVE FAXED THE CLINICAL TO [facility] TO [facility] SWIFT REQUEST ENTERED DATE: 10/06/20 9:20 CT COMMENT TYPE: Discharge Planning REVIEWER: Ivon Izaguirre PATIENT IS TOO HIGH FUNCTION FOR INPATIENT REHAB AT [facility], THE FAMILY WOULD LIKE TO GO HOME WITH HOME HEALTH. SHE WILL NEED A HOME WOUND VAC ( I AM WAITING ON MEASURMENTS ) FOR [employer] AND I HAVE SENT A REFERRAL TO [facility] FOR HOME HEALTH. PER JAMISON INGRAM APN, SHE HAS SPOKEN WITH [facility] ABOUT EDUCATION WITH HER NEW OSTOMY & THEY WILL PROVIDE ONE ON ONE EDUCATION AT HOME WITH HER CM TO FOLLOW AND ASSIST WITH DC PLANNING ENTERED DATE: 10/01/20 10:35 CT COMMENT TYPE: Discharge Planning REVIEWER: Ivon Izaguirre MIGUEL WITH [employer] HERE THIS AM TO SEE THE PATIENT AND THE WOUND VAC/ OSTOMY DRESSING. 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 CM TO FOLLOW AND ASSIST ENTERED DATE: 09/30/20 15:17 CT COMMENT TYPE: Discharge Planning REVIEWER: Ivon Izaguirre SPOKE WITH GEORGETTE WITH [facility] ABOUT OSTOMY SUPPLIES HE WILL GET ME INFO TOMORROW SO WE CAN GET THE PATIENT SET UP WITH [facility] PROPER SUPPLIES THAT SHE NEEDS ENTERED DATE: 09/30/20 10:25 CT COMMENT TYPE: Discharge Planning REVIEWER: Ivon Izaguirre SPOKE WITH PATIENT AND DAUGHTER THIS AM ABOUT NEXT LEVEL OF CARE, EXPLAINED TO THEM THAT WE WILL NEED TO SEE WHAT THE OT /ST/PT EVAL STATE ENTERED DATE: 09/29/20 8:22 CT COMMENT TYPE: Discharge Planning REVIEWER: Ivon Izaguirre LATE ENTRY 09/28/20 @ 12:00 CM met with patient and spouse to complete initial dc planning assessment. CM educated patient on the CM role and verbal consent given by patient to complete assessment. Patient lives at home with her spouse where she was independent with her care. She has been in the hospital and is very weak. She is unsure of what she needs. At discharge patient would like to return home if it is a safe discharge. CM discussed availability of home health, rehab services, and medical equipment. She has a walker and a BSC at home but currently does not need or use it. She has a new ostomy so she will need supplies and education. She will wait to see if she needs rehab. I will send info to [place] for Ostomy Supplies. CM will continue to follow and will assist as needed with dc plans/needs. DCP REVIEW SUMMARY ANTICIPATED D/C DATE: EXPECTED LOS : CASE STATUS: DCP Initiated INITIAL REVIEW: 09/19/2020 INITIAL REVIEWER: Ivon Izaguirre FINAL DISCHARGE DISPOSITION: : FINAL REVIEWER: FINAL REVIEW DATE: DCP Focus Questions & Answers DCP Screen QUESTION: ANSWER High Risk Factors: : 3 or more ED visits within the last 60 days DCP Evaluation QUESTION: ANSWER Patient and/or caregiver agree upon recommended discharge plan? : Yes Family / Caregiver's ability to cope with chronic illness: : a. Adequate (ability to meet patient's medical needs, ensures patient attends medical appts.) Patient's current cognitive status: : *Oriented to person, place, situation, time and present Patient gives permission to discuss discharge plans with: (name, relationship and number) : SPOUSE Patient's ability to cope with chronic illness : a. Adequate (0-3 ED visits in 6 mos., adequate financial resources, attends scheduled appts.) Alternate discharge plan (if recommended plan not agreed upon by patient and/or caregiver): : INPATIENT REHAB VS HOME HEALTH Does the patient have the ability to pay for or attain post discharge needs / services? : Yes Functional screen assessment: : New onset in weakness or paralysis Family / Caregiver's ability to cope with chronic illness: : a. Adequate (ability to meet patient's medical needs, ensures patient attends medical appts.) Physical Status: : Independent with ADL's Equipment needed for post hospitalization: : Ostomy Supplies Is there a likelihood that the patient will require additional services to return to the preadmission environment? : Yes Functional screen comments: : WEAK, NEW OSTOMY Living Arrangements: : Home with Spouse/Significant Other Other Equipment comments: : WILL ORDER FROM [facility] Results of this evaluation have been discussed with: : Spouse Patient with capacity for self-care or can be cared for in same environment as prior to hospitalization? : No Baseline cognitive status: : *Oriented to person, place, situation, time and present Physical environment modification needed / anticipated for discharge: : No Medication Management: : Patient states can afford medications Planned post hospital services available for patient? : Yes Pharmacy name(s): : [facility] [address] Planned post hospital services covered by insurance plan? : Yes Does Patient have transportation to get home and to follow-up medical appointments when discharged from the hospital? : Yes Would patient like to participate in any Care Coordination programs (if applicable): : Not applicable Does the patient have electricity at home? : Yes Does the patient have running water in their house? : Yes Equipment in use: : Walker - Rolling Equipment in use: : Other Equipment in use: : Bedside Commode Other Equipment comments: : BARS IN BATH Mental health screen: : No mental health history Psychosocial status: : Independent adult (18-64) Abuse/Neglect: : None Resources / Services in place: : None DCP Re-evaluation QUESTION: ANSWER Would patient like to participate in any Care Coordination programs (if applicable): : Not applicable PATIENT: LINDA SEYMOUR ENCOUNTER: [id number] MEDICAL RECORD#: [id number] ADMISSION DATE: 09/19/2020 DISCHARGE DATE: ATTENDING MD: DAVID MANCILLA : AGE: 75 MARITAL STATUS: M DC PLAN ID: [id number] FACILITY: [facility] PRINTED ON: 10/07/20 14:40 CT All edits/amendments must be made on the electronic document DICTATION DATE: 10/07/201439 TECHNICAL CLERK: THAI 10/07/20 144 RPT#: [id number] DC DATE: STATUS: ADM IN [facility] [address] [place] [address] END OF REPORT
--- NOTE | 2020-10-07 14:50 | NUR ---
WOUND VAC DRSG CHANGED FOR DC AND HOME WOUND VAC PLACED ON PATIENT.
--- NOTE | 2020-10-07 16:02 | NUR ---
DC EDUCATION PROVIDED BOTH WRITTEN AND VERBAL. VERBALIZED UNDERSTANDING. DENIES FURTHER QUESTIONS. EDUCATION PROVIDED ON WOUND VAC AND OSTOMY. EXTRA SUPPLIES FOR ONE WEEK FOR OSTOMY SENT HOME WITH PATIENT. PATIENT AND FAMILY DENY FURTHER NEEDS. DC HOME WITH ALL BELONGINGS.
--- NOTE | 2020-10-07 17:16 | NUR ---
OT NOTE: PT COMPLETED ADL MOB WITH CGA. PT REQUIRED MIN A FOR BATHING TASKS. PT COMPLETED FUNTIONAL TASKS AT EOB WITH SBA-CGA. PT REQUIRED MIN A FOR DRESSING TASKS...SNAPS AND TIES. [phone] THANK YOU,TIMOTHY AUGUSTE
--- NOTE | 2020-10-08 09:34 | MORECARE ---
CASE MANAGEMENT DISCHARGE SUMMARY PATIENT: LINDA SEYMOUR UNIT: [id number] ADM DATE: 09/19/20 AGE: 75 : 47 SEX: F ROOM/BED: D.2215 AUTHOR: SUAD,DOC PHYSICIAN: REFERRING PHYSICIAN: CELESTE REILLY MD DATE OF SERVICE: 10/08/20 Case Management Discharge Planning Summary COMMENTS ENTERED DATE: 10/07/20 14:25 CT COMMENT TYPE: Discharge Planning REVIEWER: Ivon Izaguirre PATIENT WILL BE DISCHARING HOME TODAY WITH [employer] [facility], A [employer]CI WOUND VAC, AND OSTOMY SUPPLIES. I HAVE ORDERED ALL OF HER SUPPLIES THROUGH [employer]. THEY WILL BE DELIVERED TO HER HOME. I HAVE WENT OVER AT LENGTH WITH THE PATIENT, DAUGHTER, AND SPOUSE. [facility] WILL SEE HER ON MONDAY THESE ARE THE SUPPLIES THAT WERE ORDERED PATIENTS ACCOUNT # IS [id number] WITH [employer] WAFER #[id number] ( 20 EACH) TRANSPARENT BAG # [id number] (20 EACH) DEODORANT #[id number] OSTOMY POWDER ( [employer] BRAND) #[id number] PROTECTIVE SPRAY ( COV[employer] BRAND) #[id number] MILDABLE RINGS ( JERMAN [employer]) #[id number] COLOPLAST CURVED BARRIER STRIP #[id number] ADHESIVE WIPE REMOVER ( [employer] ) # [id number] IMM SERVED AND EXPLAINED WITH DAUGHTER AND JOAO ALSO SIGNED. CM TO FOLLOW AND ASSIST WITH DC PLANNING NEEDED ENTERED DATE: 10/06/20 14:11 CT COMMENT TYPE: Discharge Planning REVIEWER: Ivon Izaguirre I HAVE FAXED THE CLINICAL TO [facility] TO [facility]ER SWIFT REQUEST ENTERED DATE: 10/06/20 9:20 CT COMMENT TYPE: Discharge Planning REVIEWER: Ivon Izaguirre PATIENT IS TOO HIGH FUNCTION FOR INPATIENT REHAB AT [facility], THE FAMILY WOULD LIKE TO GO HOME WITH HOME HEALTH. SHE WILL NEED A HOME WOUND VAC ( I AM WAITING ON MEASURMENTS ) FOR [employer] AND I HAVE SENT A REFERRAL TO [facility] FOR HOME HEALTH. PER JAMISON INGRAM APN, SHE HAS SPOKEN WITH [facility] ABOUT EDUCATION WITH HER NEW OSTOMY & THEY WILL PROVIDE ONE ON ONE EDUCATION AT HOME WITH HER CM TO FOLLOW AND ASSIST WITH DC PLANNING ENTERED DATE: 10/01/20 10:35 CT COMMENT TYPE: Discharge Planning REVIEWER: Ivon Izaguirre MIGUEL WITH [employer] HERE THIS AM TO SEE THE PATIENT AND THE WOUND VAC/ OSTOMY DRESSING. 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 CM TO FOLLOW AND ASSIST ENTERED DATE: 09/30/20 15:17 CT COMMENT TYPE: Discharge Planning REVIEWER: Ivon Izaguirre SPOKE WITH GEORGETTE WITH [facility] ABOUT OSTOMY SUPPLIES HE WILL GET ME INFO TOMORROW SO WE CAN GET THE PATIENT SET UP WITH [facility] PROPER SUPPLIES THAT SHE NEEDS ENTERED DATE: 09/30/20 10:25 CT COMMENT TYPE: Discharge Planning REVIEWER: Ivon Izaguirre SPOKE WITH PATIENT AND DAUGHTER THIS AM ABOUT NEXT LEVEL OF CARE, EXPLAINED TO THEM THAT WE WILL NEED TO SEE WHAT THE OT /ST/PT EVAL STATE ENTERED DATE: 09/29/20 8:22 CT COMMENT TYPE: Discharge Planning REVIEWER: Ivon Izaguirre LATE ENTRY 09/28/20 @ 12:00 CM met with patient and spouse to complete initial dc planning assessment. CM educated patient on the CM role and verbal consent given by patient to complete assessment. Patient lives at home with her spouse where she was independent with her care. She has been in the hospital and is very weak. She is unsure of what she needs. At discharge patient would like to return home if it is a safe discharge. CM discussed availability of home health, rehab services, and medical equipment. She has a walker and a BSC at home but currently does not need or use it. She has a new ostomy so she will need supplies and education. She will wait to see if she needs rehab. I will send info to [place] for Ostomy Supplies. CM will continue to follow and will assist as needed with dc plans/needs. DCP REVIEW SUMMARY ANTICIPATED D/C DATE: EXPECTED LOS : 0 CASE STATUS: DCP Initiated INITIAL REVIEW: 09/19/2020 INITIAL REVIEWER: Ivon Izaguirre FINAL DISCHARGE DISPOSITION: 06 : Discharged/Trans to Home Under Care of Organized Home Health Service in Anticipation of Skilled Care FINAL REVIEWER: Ivon Izaguirre FINAL REVIEW DATE: 10/08/2020 DCP Focus Questions & Answers DCP Screen QUESTION: ANSWER High Risk Factors: : 3 or more ED visits within the last 60 days DCP Evaluation QUESTION: ANSWER Patient and/or caregiver agree upon recommended discharge plan? : Yes Family / Caregiver's ability to cope with chronic illness: : a. Adequate (ability to meet patient's medical needs, ensures patient attends medical appts.) Patient's current cognitive status: : *Oriented to person, place, situation, time and present Patient gives permission to discuss discharge plans with: (name, relationship and number) : SPOUSE Patient's ability to cope with chronic illness : a. Adequate (0-3 ED visits in 6 mos., adequate financial resources, attends scheduled appts.) Alternate discharge plan (if recommended plan not agreed upon by patient and/or caregiver): : INPATIENT REHAB VS HOME HEALTH Does the patient have the ability to pay for or attain post discharge needs / services? : Yes Functional screen assessment: : New onset in weakness or paralysis Family / Caregiver's ability to cope with chronic illness: : a. Adequate (ability to meet patient's medical needs, ensures patient attends medical appts.) Physical Status: : Independent with ADL's Equipment needed for post hospitalization: : Ostomy Supplies Is there a likelihood that the patient will require additional services to return to the preadmission environment? : Yes Functional screen comments: : WEAK, NEW OSTOMY Living Arrangements: : Home with Spouse/Significant Other Other Equipment comments: : WILL ORDER FROM [facility] Results of this evaluation have been discussed with: : Spouse Patient with capacity for self-care or can be cared for in same environment as prior to hospitalization? : No Baseline cognitive status: : *Oriented to person, place, situation, time and present Physical environment modification needed / anticipated for discharge: : No Medication Management: : Patient states can afford medications Planned post hospital services available for patient? : Yes Pharmacy name(s): : [facility] [address] Planned post hospital services covered by insurance plan? : Yes Does Patient have transportation to get home and to follow-up medical appointments when discharged from the hospital? : Yes Would patient like to participate in any Care Coordination programs (if applicable): : Not applicable Does the patient have electricity at home? : Yes Does the patient have running water in their house? : Yes Equipment in use: : Walker - Rolling Equipment in use: : Other Equipment in use: : Bedside Commode Other Equipment comments: : BARS IN BATH Mental health screen: : No mental health history Psychosocial status: : Independent adult (18-64) Abuse/Neglect: : None Resources / Services in place: : None DCP Re-evaluation QUESTION: ANSWER Would patient like to participate in any Care Coordination programs (if applicable): : Not applicable PATIENT: LINDA SEYMOUR ENCOUNTER: [id number] MEDICAL RECORD#: [id number] ADMISSION DATE: 09/19/2020 DISCHARGE DATE: 10/07/2020 ATTENDING MD: DAVID MANCILLA : [id number] AGE: 75 MARITAL STATUS: M DC PLAN ID: [id number] FACILITY: [facility] PRINTED ON: 10/08/20 9:34 CT All edits/amendments must be made on the electronic document DICTATION DATE: 10/08/20933 BEAUTY PARLOR CLEANER: THAI 10/08/20933 RPT#: [id number] DC DATE:10/07/20 STATUS: DIS IN [facility] [address] [place] [address] END OF REPORT
--- NOTE | 2020-10-08 10:48 | MORECARE ---
CASE MANAGEMENT DISCHARGE SUMMARY PATIENT: LINDA SEYMOUR UNIT: [id number] ADM DATE: 09/19/20 AGE: 75 : 47 SEX: F ROOM/BED: D.2215 AUTHOR: SUAD,DOC PHYSICIAN: REFERRING PHYSICIAN: CELESTE REILLY MD DATE OF SERVICE: 10/08/20 Case Management Discharge Planning Summary COMMENTS ENTERED DATE: 10/07/20 14:25 CT COMMENT TYPE: Discharge Planning REVIEWER: Ivon Izaguirre PATIENT WILL BE DISCHARING HOME TODAY WITH [employer] [facility], A [employer]CI WOUND VAC, AND OSTOMY SUPPLIES. I HAVE ORDERED ALL OF HER SUPPLIES THROUGH [employer]. THEY WILL BE DELIVERED TO HER HOME. I HAVE WENT OVER AT LENGTH WITH THE PATIENT, DAUGHTER, AND SPOUSE. [facility] WILL SEE HER ON MONDAY THESE ARE THE SUPPLIES THAT WERE ORDERED PATIENTS ACCOUNT # IS [id number] WITH [employer] WAFER #[id number] ( 20 EACH) TRANSPARENT BAG # [id number] (20 EACH) DEODORANT #[id number] OSTOMY POWDER ( [employer] BRAND) #[id number] PROTECTIVE SPRAY ( COV[employer] BRAND) #[id number] MILDABLE RINGS ( [employer]) #[id number] COLOPLAST CURVED BARRIER STRIP #[id number] ADHESIVE WIPE REMOVER ( [employer] ) # [id number] IMM SERVED AND EXPLAINED WITH DAUGHTER AND JOAO ALSO SIGNED. CM TO FOLLOW AND ASSIST WITH DC PLANNING NEEDED ENTERED DATE: 10/06/20 14:11 CT COMMENT TYPE: Discharge Planning REVIEWER: Ivon Izaguirre I HAVE FAXED THE CLINICAL TO [facility] TO [facility]ER SWIFT REQUEST ENTERED DATE: 10/06/20 9:20 CT COMMENT TYPE: Discharge Planning REVIEWER: Ivon Izaguirre PATIENT IS TOO HIGH FUNCTION FOR INPATIENT REHAB AT [facility], THE FAMILY WOULD LIKE TO GO HOME WITH HOME HEALTH. SHE WILL NEED A HOME WOUND VAC ( I AM WAITING ON MEASURMENTS ) FOR [employer] AND I HAVE SENT A REFERRAL TO [facility] FOR HOME HEALTH. PER JAMISON INGRAM APN, SHE HAS SPOKEN WITH [facility] ABOUT EDUCATION WITH HER NEW OSTOMY & THEY WILL PROVIDE ONE ON ONE EDUCATION AT HOME WITH HER CM TO FOLLOW AND ASSIST WITH DC PLANNING ENTERED DATE: 10/01/20 10:35 CT COMMENT TYPE: Discharge Planning REVIEWER: Ivon Izaguirre MIGUEL WITH [employer] HERE THIS AM TO SEE THE PATIENT AND THE WOUND VAC/ OSTOMY DRESSING. 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 CM TO FOLLOW AND ASSIST ENTERED DATE: 09/30/20 15:17 CT COMMENT TYPE: Discharge Planning REVIEWER: Ivon Izaguirre SPOKE WITH GEORGETTE WITH [facility] ABOUT OSTOMY SUPPLIES HE WILL GET ME INFO TOMORROW SO WE CAN GET THE PATIENT SET UP WITH [facility] PROPER SUPPLIES THAT SHE NEEDS ENTERED DATE: 09/30/20 10:25 CT COMMENT TYPE: Discharge Planning REVIEWER: Ivon Izaguirre SPOKE WITH PATIENT AND DAUGHTER THIS AM ABOUT NEXT LEVEL OF CARE, EXPLAINED TO THEM THAT WE WILL NEED TO SEE WHAT THE OT /ST/PT EVAL STATE ENTERED DATE: 09/29/20 8:22 CT COMMENT TYPE: Discharge Planning REVIEWER: Ivon Izaguirre LATE ENTRY 09/28/20 @ 12:00 CM met with patient and spouse to complete initial dc planning assessment. CM educated patient on the CM role and verbal consent given by patient to complete assessment. Patient lives at home with her spouse where she was independent with her care. She has been in the hospital and is very weak. She is unsure of what she needs. At discharge patient would like to return home if it is a safe discharge. CM discussed availability of home health, rehab services, and medical equipment. She has a walker and a BSC at home but currently does not need or use it. She has a new ostomy so she will need supplies and education. She will wait to see if she needs rehab. I will send info to [place] for Ostomy Supplies. CM will continue to follow and will assist as needed with dc plans/needs. DCP REVIEW SUMMARY ANTICIPATED D/C DATE: EXPECTED LOS : 0 CASE STATUS: DCP Initiated INITIAL REVIEW: 09/19/2020 INITIAL REVIEWER: Ivon Izaguirre FINAL DISCHARGE DISPOSITION: 06 : Discharged/Trans to Home Under Care of Organized Home Health Service in Anticipation of Skilled Care FINAL REVIEWER: Ivon Izaguirre FINAL REVIEW DATE: 10/08/2020 DCP Focus Questions & Answers DCP Screen QUESTION: ANSWER High Risk Factors: : 3 or more ED visits within the last 60 days DCP Evaluation QUESTION: ANSWER Patient and/or caregiver agree upon recommended discharge plan? : Yes Family / Caregiver's ability to cope with chronic illness: : a. Adequate (ability to meet patient's medical needs, ensures patient attends medical appts.) Patient's current cognitive status: : *Oriented to person, place, situation, time and present Patient gives permission to discuss discharge plans with: (name, relationship and number) : SPOUSE Patient's ability to cope with chronic illness : a. Adequate (0-3 ED visits in 6 mos., adequate financial resources, attends scheduled appts.) Alternate discharge plan (if recommended plan not agreed upon by patient and/or caregiver): : INPATIENT REHAB VS HOME HEALTH Does the patient have the ability to pay for or attain post discharge needs / services? : Yes Functional screen assessment: : New onset in weakness or paralysis Family / Caregiver's ability to cope with chronic illness: : a. Adequate (ability to meet patient's medical needs, ensures patient attends medical appts.) Physical Status: : Independent with ADL's Equipment needed for post hospitalization: : Ostomy Supplies Is there a likelihood that the patient will require additional services to return to the preadmission environment? : Yes Functional screen comments: : WEAK, NEW OSTOMY Living Arrangements: : Home with Spouse/Significant Other Other Equipment comments: : WILL ORDER FROM [facility] Results of this evaluation have been discussed with: : Spouse Patient with capacity for self-care or can be cared for in same environment as prior to hospitalization? : No Baseline cognitive status: : *Oriented to person, place, situation, time and present Physical environment modification needed / anticipated for discharge: : No Medication Management: : Patient states can afford medications Planned post hospital services available for patient? : Yes Pharmacy name(s): : [facility] [address] Planned post hospital services covered by insurance plan? : Yes Does Patient have transportation to get home and to follow-up medical appointments when discharged from the hospital? : Yes Would patient like to participate in any Care Coordination programs (if applicable): : Not applicable Does the patient have electricity at home? : Yes Does the patient have running water in their house? : Yes Equipment in use: : Walker - Rolling Equipment in use: : Other Equipment in use: : Bedside Commode Other Equipment comments: : BARS IN BATH Mental health screen: : No mental health history Psychosocial status: : Independent adult (18-64) Abuse/Neglect: : None Resources / Services in place: : None DCP Re-evaluation QUESTION: ANSWER Would patient like to participate in any Care Coordination programs (if applicable): : Not applicable PATIENT: LINDA SEYMOUR ENCOUNTER: [id number] MEDICAL RECORD#: [id number] ADMISSION DATE: 09/19/2020 DISCHARGE DATE: 10/07/2020 ATTENDING MD: DAVID MANCILLA : [id number] AGE: 75 MARITAL STATUS: M DC PLAN ID: [id number] FACILITY: [facility] PRINTED ON: 10/08/20 10:48 CT All edits/amendments must be made on the electronic document DICTATION DATE: 10/08/201047 [employer] DEVELOPER: THAI 10/08/201047 RPT#: [id number] DC DATE:10/07/20 STATUS: DIS IN [facility] [address] [place] [address] END OF REPORT
--- NOTE | 2020-11-11 13:08 | OP ---
PATIENT NAME: LINDA SEYMOUR MEDICAL RECORD: [id number] :49 LOCATION:[id number] ADMISSION DATE:09/19/20 SURGEON: ASHISH GARCIA MD DATE OF OPERATION: 09/26/2020 PREOPERATIVE DIAGNOSIS: Persistent diverticulitis of the sigmoid colon with diverticular abscess. POSTOPERATIVE DIAGNOSIS: Persistent diverticulitis of the sigmoid colon with diverticular abscess with the appendix being involved in this inflammatory process. PROCEDURE PERFORMED: 1. Miguel procedure with sigmoid resection. 2. Appendectomy. SURGEON: Ashish Garcia MD GLUE LINE OPERATOR: None. BLOOD LOSS: Please see the anesthesia sheet. COMPLICATIONS: None. The risks, possible complications, and alternatives of the procedure were explained to the patient. She elects to proceed. OPERATIVE REPORT: The patient was conveyed to the operating room electively on 09/26/2020. General anesthesia was induced by the anesthesia staff. An abdominal incision was accomplished. The peritoneal cavity was entered sharply. Retractors were placed. I mobilized the sigmoid colon bluntly. Purulence was identified. I chose the distal extent of my resection to be at junction of the sigmoid colon and the rectum. A window was created in the mesorectum here and I stapled across the bowel with a TA 60 stapler. I chose the proximal extent lateral flexion to the junction of the descending and sigmoid colons. I stapled across the bowel here with a TA 60 stapler. The interposed mesentery was taken down with the Super Jaw EnSeal device. The specimen was then sent to pathology. The rectum was marked with a large Prolene suture for easy identifiability when the patient undergoes reversal. The appendix was involved in the inflammatory process. For that reason, there was an indication to remove it. A window was created in the mesoappendix. I took down the mesoappendix with the Super Jaw EnSeal device. I then stapled across the tip of the cecum with a KARLA-75 stapler. I irrigated the abdomen and aspirated. There was no bleeding. A left lower quadrant circular incision was accomplished. I dissected down to the anterior fascia, which was scored in a cruciate incision. I then delivered the sigmoid at the level of the descending colon after some sharp dissection along the left white line of Toldt. After ensuring that the descending colon was not twisted on its mesentery, I closed the midline fascia with running looped #1 PDS as well as metallic clips. Attention was turned to maturation of the stoma. I excised the staple line. I then fashioned a Perla type of a diverting colostomy. Colostomy was pink. OPERATIVE REPORT [id number] LINDA SEYMOUR Sterile dressings were applied including stoma appliance. The patient was then extubated and conveyed to post-anesthesia care unit where she was in stable condition. TRANSINT:[id number] Voice Confirmation ID: [id number] DOCUMENT ID: [id number] ASHISH GARCIA MD at 1308 CC: [id number] DICTATION DATE: 11/10/20 0646 HUMAN RESOURCES EXECUTIVE ASSISTANT: 11/10/20 1439 DIS IN 10/07/20 [id number] [place] [id number]
== END 2020-10-07 16:03 | disposition home health service (06) | DRG 330 ==
LOC: D.ER 15:21 → D.MS 17:48
PROVIDERS: Family Medicine; General Practice; Radiology Diagnostic Radiology; Surgery; ADMIT Emergency Medicine; ATTEND Emergency Medicine
PROC: 0W9J4ZZ Drainage of Pelvic Cavity, Percutaneous Endoscopic Approach (ICD-10-PCS; 2020-09-22)
PROC: 05H633Z Insertion of Infusion Device into Left Subclavian Vein, Percutaneous Approach (ICD-10-PCS; principal; 2020-09-22 10:45)
PROC: 0DTN0ZZ Resection of Sigmoid Colon, Open Approach (ICD-10-PCS; 2020-09-30)
PROC: 0DTJ0ZZ Resection of Appendix, Open Approach (ICD-10-PCS; 2020-09-30)
DX: K57.80 Diverticulitis of intestine, part unspecified, with perforation and abscess without bleeding (principal); D68.2 Hereditary deficiency of other clotting factors; E87.1 Hypo-osmolality and hyponatremia; N39.0 Urinary tract infection, site not specified; E46 Unspecified protein-calorie malnutrition; N83.209 Unspecified ovarian cyst, unspecified side; I10 Essential (primary) hypertension; E78.5 Hyperlipidemia, unspecified; K21.9 Gastro-esophageal reflux disease without esophagitis; M19.90 Unspecified osteoarthritis, unspecified site; G47.33 Obstructive sleep apnea (adult) (pediatric); G62.9 Polyneuropathy, unspecified; Z85.3 Personal history of malignant neoplasm of breast; E87.6 Hypokalemia; Z68.22 Body mass index [BMI] 22.0-22.9, adult